=== PATIENT | female | born 1960 ===

== ENCOUNTER 2016-11-01 08:08 | Emergency (ER) | payer MEDICARE, MEDICAID ==
[2016-11-01 08:41] VITALS: BMI 30.9
[2016-11-01 08:46] VITALS: TEMP 98.4
--- NOTE | 2016-11-01 09:33 | RAD ---
PROCEDURE: Radiographs of the Right Shoulder HISTORY: shoulder pain COMPARISON: No prior. FINDINGS: BONES: No fracture or dislocation. JOINTS: Mild osteoarthritis. SOFT TISSUES: Normal. OTHER FINDINGS: None. IMPRESSION: No fracture dislocation
--- NOTE | 2016-11-01 09:49 | ED PDOC ---
Upper Extremity Pain/Injury Time Seen by Provider: 11/01/16 08:19 Chief Complaint (Nursing): Upper Extremity Problem/Injury Chief Complaint (Provider): Upper Extremity Problem/Injury History Per: Patient History/Exam Limitations: no limitations Onset/Duration Of Symptoms: Days (x1 day) Current Symptoms Are (Timing): Still Present Additional Complaint(s): 56 y/o female who presents to the emergency department with a complaint of a right shoulder pain that radiates down to the right arm after cleaning the house around 18:00 on 10/31/2016. Was mopping and using the right arm mainly. Associated with tingling in fingers. Reports taking Tylenol without relief of symptoms. Denies chest pain, shortness of breath, facial numbness, weakness, neck pain, leg pain, or head injury. No back pain. No facial issues. Past Medical History Reviewed: Historical Data, Nursing Documentation, Vital Signs Vital Signs: Last Vital Signs Temp 98.4 F 11/01/16 08:45 Pulse 63 11/01/16 08:45 Resp 16 11/01/16 08:45 BP 126/64 11/01/16 08:45 Pulse Ox 98 11/01/16 08:45 - Medical History PMH: Anxiety, Arthritis, Bipolar Disorder, GERD, HTN Denies: Chronic Kidney Disease - Surgical History Surgical History: (4 ) - Family History Family History: States: Unknown Family Hx - Social History Current smoker - smoking cessation education provided: No Alcohol: None Drugs: Denies - Immunization History Hx Tetanus Toxoid Vaccination: No Hx Influenza Vaccination: No Hx Pneumococcal Vaccination: No - Home Medications Home Medications: Ambulatory Orders Medication Instructions Recorded Naproxen 500 mg PO BID #30 tab 01/16/16 Oxycodone HCl/Acetaminophen 1 tab PO Q6 PRN #12 tab 01/16/16 [Percocet 325 mg-5 mg] metFORMIN [glucOPHAGE] 500 mg PO BID 01/16/16 Lidocaine 5% [Lidoderm] 1 patch TOP DAILY #10 patch 02/11/16 Oxycodone HCl/Acetaminophen 1 tab PO Q6 PRN #8 tab 02/14/16 [Percocet 325 mg-5 mg] diaZEpam [Valium] 5 mg PO Q6 PRN #0 tab 02/14/16 Ibuprofen [Motrin] 600 mg PO Q6 #25 tab 08/26/16 metFORMIN [glucOPHAGE] 500 mg PO BID 03/27/16 Dicyclomine [Bentyl] 20 mg PO Q12 PRN #20 tab 05/17/16 Ondansetron ODT [Zofran ODT] 4 mg PO Q6 PRN #16 odt 05/17/16 Azithromycin [Zithromax] 250 mg PO DAILY #6 tab 07/09/16 traMADol [Ultram] 50 mg PO Q8 #10 tab 07/09/16 Ciprofloxacin HCl [Cipro] 500 mg PO BID #20 tab 08/01/16 Fluticasone Nasal [Flonase] 1 actuation NS DAILY #1 spr 08/01/16 - Allergies Allergies/Adverse Reactions: Allergies Allergy/AdvReac Type Severity Reaction Status Date / Time ibuprofen Allergy RASH Verified 08/01/16 07:41 Penicillins Allergy RASH Verified 08/01/16 07:41 strawberry Allergy VOMITING Verified 08/01/16 07:41 Review of Systems ROS Statement: Except As Marked, All Systems Reviewed And Found Negative Constitutional: Negative for: Weakness, Other (Facial numbness or head injury) Cardiovascular: Negative for: Chest Pain Respiratory: Negative for: Shortness of Breath Musculoskeletal: Positive for: Shoulder Pain (Right), Arm Pain (Right). Negative for: Neck Pain, Leg Pain Neurological: Negative for: Numbness Physical Exam - Reviewed Nursing Documentation Reviewed: Yes Vital Signs Reviewed: Yes - Physical Exam Appears: Positive for: Non-toxic, No Acute Distress Skin: Positive for: Normal Color, Warm, Dry Neck: Positive for: Normal, Painless ROM, Supple Cardiovascular/Chest: Positive for: Regular Rate, Rhythm, Chest Non Tender. Negative for: Edema Respiratory: Positive for: Normal Breath Sounds Pulses-Radial (R): 1+ Extremity: Positive for: Tenderness (R shoulder diffuse), Other (Full ROM R of the shoulder with pain; actively and passively ). Negative for: Pedal Edema Neurologic/Psych: Positive for: Alert, Oriented - ECG O2 Sat by Pulse Oximetry: 98 (RA) Pulse Ox Interpretation: Normal - Radiology X-Ray: Read By Radiologist X-Ray Interpretation: No Acute Disease - Progress ED Course And Treament: 1105: Stable. AAOx3. Pain free. Increased ROM. Fu with pcp. Allergy to nsaids. Medical Decision Making Medical Decision Making: Time: 8:19 Initial impression: Shoulder stiffness Initial plan: --Morphine 4mg IM --Revaluation Scribe Attestation: Documented by Shireen Zacarias, acting as a scribe for Robert Dickey MD. Provider Scribe Attestation: All medical record entries made by the Scribe were at my direction and personally dictated by me. I have reviewed the chart and agree that the record accurately reflects my personal performance of the history, physical exam, medical decision making, and the department course for this patient. I have also personally directed, reviewed, and agree with the discharge instructions and disposition. Disposition - Clinical Impression Clinical Impression: Shoulder pain - Patient ED Disposition Is Patient to be Admitted: No Counseled Patient/Family Regarding: Studies Performed, Diagnosis, Need For Followup - Disposition Referrals: Don Peterson MD [Primary Care Provider] - 11/02/16 Disposition: Routine/Home Disposition Time: 11:06 Condition: STABLE Additional Instructions: Return if not better in 3 days. Instructions: Shoulder Pain (ED)
[2016-11-01 11:16] VITALS: BP 114/66; PULSE 61; RESP 18; O2SAT 99
== END 2016-11-01 11:16 | disposition home or self-care (01) ==
LOC: H.ER 08:08
DX: M25.511 Pain in right shoulder (principal); F31.9 Bipolar disorder, unspecified; I10 Essential (primary) hypertension; Z79.84 Long term (current) use of oral hypoglycemic drugs
CPT/HCPCS: 73030; 96372; 99284; J2270

== ENCOUNTER 2017-04-11 09:58 | Emergency (ER) | payer MEDICARE, MEDICAID ==
[2017-04-11 10:04] VITALS: TEMP 98; O2SAT 99
[2017-04-11 10:05] VITALS: BMI 31.4
--- NOTE | 2017-04-11 10:33 | ED PDOC ---
HPI: Headache Time Seen by Provider: 04/11/17 10:13 Chief Complaint (Nursing): Headache Chief Complaint (Provider): Headache History Per: Patient History/Exam Limitations: no limitations Onset/Duration Of Symptoms: Days Current Symptoms Are (Timing): Still Present Additional Complaint(s): 56 y/o female with a past medical history of migraines who presents to the emergency department with a complaint of a headache, dizziness, nausea, chills, constipation, and pain with ambulation since 04/09/2017. Reports taking Tylenol and Excedrin within the relief of symptoms. States last head CAT Scan was in 1999 when she used to live in [place] and would get shots in the emergency room for her migraines. Denies abdominal pain or any further medical complaints. PMD: Dr. Don Peterson MD Past Medical History Reviewed: Historical Data, Nursing Documentation, Vital Signs Vital Signs: Last Vital Signs Temp 98 F 04/11/17 10:04 Pulse 51 L 04/11/17 10:04 Resp 16 04/11/17 10:04 BP 111/51 L 04/11/17 10:04 Pulse Ox 99 04/11/17 10:04 - Medical History PMH: Anxiety, Arthritis, Bipolar Disorder, Depression, Diabetes (type 2), GERD, HTN Denies: Chronic Kidney Disease - Surgical History Surgical History: (4 ) - Family History Family History: States: Unknown Family Hx - Immunization History Hx Tetanus Toxoid Vaccination: No Hx Influenza Vaccination: No Hx Pneumococcal Vaccination: No - Home Medications Home Medications: Ambulatory Orders Medication Instructions Recorded Benztropine [Cogentin] 1 tab PO BID 04/11/17 Metformin ER [Glucophage XR] 1 tab PO BID 04/11/17 Polyethylene Glycol 3350 [Miralax] 1 tsp PO DAILY PRN #1 bottle 04/11/17 Risperidone [Risperdal] 1 tab PO HS 04/11/17 Sertraline HCl [Zoloft] 1 tab PO DAILY 04/11/17 busPIRone [Buspar] 15 mg PO BID 04/11/17 traMADol [Ultram] 25 mg PO Q6H PRN #10 tab 04/11/17 traZODone [Desyrel] 1 tab PO HS 04/11/17 - Allergies Allergies/Adverse Reactions: Allergies Allergy/AdvReac Type Severity Reaction Status Date / Time ibuprofen Allergy RASH Verified 04/11/17 10:25 Penicillins Allergy RASH Verified 04/11/17 10:25 strawberry Allergy VOMITING Verified 04/11/17 10:25 Review of Systems ROS Statement: Except As Marked, All Systems Reviewed And Found Negative Constitutional: Positive for: Chills Gastrointestinal: Positive for: Nausea, Constipation. Negative for: Abdominal Pain Neurological: Positive for: Headache, Dizziness Physical Exam - Reviewed Nursing Documentation Reviewed: Yes Vital Signs Reviewed: Yes - Physical Exam Appears: Positive for: Non-toxic, No Acute Distress Head Exam: Positive for: ATRAUMATIC, NORMAL INSPECTION, NORMOCEPHALIC Skin: Positive for: Normal Color, Warm, Dry Eye Exam: Positive for: Normal appearance ENT: Positive for: Normal ENT Inspection Neck: Positive for: Normal, Supple Cardiovascular/Chest: Positive for: Regular Rate, Rhythm. Negative for: Murmur Respiratory: Positive for: Normal Breath Sounds. Negative for: Accessory Muscle Use, Wheezing, Respiratory Distress Neurologic/Psych: Positive for: Alert, Oriented (x3) - Laboratory Results Result Diagrams: 04/11/17 11:10 04/11/17 11:10 - ECG O2 Sat by Pulse Oximetry: 99 (RA) Pulse Ox Interpretation: Normal Medical Decision Making Medical Decision Making: Time: 10:30 Initial impression: Migraine Initial plan: --Head CT --EKG --CMP --CBC w/ diff --Abdomen w/ chest x-ray --Reevaluation Time: 10:58 --Head CT FINDINGS: HEMORRHAGE: No intracranial hemorrhage. BRAIN: No mass effect or edema. No atrophy or chronic microvascular ischemic changes. VENTRICLES: Unremarkable. No hydrocephalus. CALVARIUM: Unremarkable. PARANASAL SINUSES: Unremarkable as visualized. No significant inflammatory changes. MASTOID AIR CELLS: Unremarkable as visualized. No inflammatory changes. OTHER FINDINGS: None. IMPRESSION: No acute intracranial abnormalities. No significant findings to account for the clinical presentation. Time: 11:34 --Zofran 4 mg IV --Ultram 50 mg PO --Sodium Chloride 1L IV Time: 12:04 --Chest-abdomen x-ray FINDINGS: CHEST: Lungs: Clear. Cardiovascular: Normal size heart. No pulmonary vascular congestion. Pleura: No pleural fluid. No pneumothorax. Other findings: None. ABDOMEN AND PELVIS: Bowel: Unremarkable bowel gas pattern. No evidence of mechanical obstruction. Free air: None. Bones: Unremarkable. Other findings: None. IMPRESSION: Unremarkable radiographs of chest and abdomen. No evidence of mechanical bowel obstruction. Time: 13:00 Patient is medically stable, and requires no further treatment in the ED at this time. Patient will be discharged home with Rx for Miralax and ultram 25 mg. Counseling was provided and all questions were answered regarding diagnosis and need for follow up with Dr. Don Peterson MD. There is agreement to discharge plan. Return if symptoms persist or worsen. Clinical Impression: Constipation and headache Scribe Attestation: Documented by Shireen Zacarias, acting as a scribe for Aviva Perea MD. Provider Scribe Attestation: All medical record entries made by the Scribe were at my direction and personally dictated by me. I have reviewed the chart and agree that the record accurately reflects my personal performance of the history, physical exam, medical decision making, and the department course for this patient. I have also personally directed, reviewed, and agree with the discharge instructions and disposition. Disposition - Clinical Impression Clinical Impression: Headache, Constipation Counseled Patient/Family Regarding: Studies Performed, Diagnosis, Need For Followup, Rx Given - Disposition Referrals: Don Peterson MD [Family Provider] - Disposition Time: 13:00 Condition: STABLE Prescriptions: Polyethylene Glycol 3350 [Miralax] 1 tsp PO DAILY PRN #1 bottle PRN Reason: Constipation traMADol [Ultram] 25 mg PO Q6H PRN #10 tab PRN Reason: Pain, Severe (8-10) Instructions: Constipation (ED), Migraine Headache (ED) Forms: [employer] (Namibian)
--- NOTE | 2017-04-11 10:59 | CT ---
PROCEDURE: CT HEAD WITHOUT CONTRAST. HISTORY: HARPER COMPARISON: None available. TECHNIQUE: Axial computed tomography images were obtained through the head/brain without intravenous contrast. Radiation dose: Total exam DLP = 989.93 mGy-cm. This CT exam was performed using one or more of the following dose reduction techniques: Automated exposure control, adjustment of the mA and/or kV according to patient size, and/or use of iterative reconstruction technique. FINDINGS: HEMORRHAGE: No intracranial hemorrhage. BRAIN: No mass effect or edema. No atrophy or chronic microvascular ischemic changes. VENTRICLES: Unremarkable. No hydrocephalus. CALVARIUM: Unremarkable. PARANASAL SINUSES: Unremarkable as visualized. No significant inflammatory changes. MASTOID AIR CELLS: Unremarkable as visualized. No inflammatory changes. OTHER FINDINGS: None. IMPRESSION: No acute intracranial abnormalities. No significant findings to account for the clinical presentation.
[2017-04-11 11:18] LABS: BASO % 0.4 % (0.0-2.0); EOS # 0.1 K/uL (0.0-0.7); EOS % 2.3 % (0.0-4.0); LYMPH # 1.7 K/uL (1.0-4.3); LYMPH % 33.5 % (20.0-40.0); MEAN CELL VOLUME 90.1 fl (81.0-99.0); MEAN CORPUSCULAR HEMOGLOBIN 30.1 pg (27.0-31.0); MEAN CORPUSCULAR HGB CONC 33.4 g/dL (33.0-37.0); MEAN PLATELET VOLUME 8.9 fl (7.2-11.7); MONO # 0.5 K/uL (0.0-0.8); MONO % 8.9 % (0.0-10.0); NEUT # 2.8 K/uL (1.8-7.0); NEUT % 54.9 % (50.0-75.0); NRBC % 0.1 % (0.0-0.0); RED CELL DISTRIBUTION WIDTH 13.3 % (11.5-14.5); WHITE BLOOD COUNT 5.2 K/uL (4.8-10.8)
[2017-04-11] MEDS ORDERED: Sodium Chloride 0.9% 1,000 ML IV STA (11:39)
[2017-04-11 11:40] LABS: ALB/GLOB RATIO 1.4 (1.0-2.1); ALKALINE PHOSPHATASE 55 U/L (38-126); ALT/SGPT 36 U/L (9-52); AST/SGOT 35 U/L (14-36); BILIRUBIN,TOTAL 0.3 mg/dl (0.2-1.3); BLOOD UREA NITROGEN 12 mg/dl (7-17); CALCIUM 9.6 mg/dL (8.4-10.2); CARBON DIOXIDE 28 mmol/L (22-30); CHLORIDE 107 mmol/L (98-107); GFR AFRICAN-AMERICAN > 60; GLUCOSE,RANDOM 84 mg/dL (65-105); POTASSIUM 4.4 MMOL/L (3.6-5.0); SODIUM 141 mmol/l (132-148); TOTAL PROTEIN 6.8 G/DL (6.3-8.2)
--- NOTE | 2017-04-11 13:06 | RAD ---
PROCEDURE: Radiographs of the chest and abdomen (obstructive series) HISTORY: Constipation COMPARISON: No prior. TECHNIQUE: AP radiograph of the chest, with upright and supine radiographs of the abdomen. FINDINGS: CHEST: Lungs: Clear. Cardiovascular: Normal size heart. No pulmonary vascular congestion. Pleura: No pleural fluid. No pneumothorax. Other findings: None. ABDOMEN AND PELVIS: Bowel: Unremarkable bowel gas pattern. No evidence of mechanical obstruction. Free air: None. Bones: Unremarkable. Other findings: None. IMPRESSION: Unremarkable radiographs of chest and abdomen. No evidence of mechanical bowel obstruction.
[2017-04-11 13:12] VITALS: BP 142/83; PULSE 63; RESP 18
--- NOTE | 2017-04-14 10:06 | CARD ---
APPROVED REPORT EKG Measurement Heart [id number] NC [id number] [id number] <Conclusion> Sinus bradycardia Otherwise normal ECG
== END 2017-04-11 13:21 | disposition home or self-care (01) ==
LOC: H.ER 09:58
DX: R51 Headache (principal); K59.00 Constipation, unspecified; E11.9 Type 2 diabetes mellitus without complications; Z79.84 Long term (current) use of oral hypoglycemic drugs; Z88.0 Allergy status to penicillin
CPT/HCPCS: 70450; 74022; 80053; 81025; 85025; 96360; 99285; J2405; J7040

== ENCOUNTER 2017-04-17 10:33 | Inpatient (IN) | payer MEDICARE, MEDICAID ==
[2017-04-17 10:39] VITALS: BMI 29.9
--- NOTE | 2017-04-17 11:31 | ED PDOC ---
HPI: Chest Pain Time Seen by Provider: 04/17/17 10:57 Chief Complaint (Nursing): Chest Pain Chief Complaint (Provider): Dizzy, SOB History Per: Patient Additional Complaint(s): 56 y/o female with a past medical history of HTN and DM, who presents to the emergency department with multiple somatic complaints. Pt reports for 1 month now she has had weakness, fatigue, vertigo, headaches, nausea, chest pain and SOB. Pt reports her symptoms have been so terrible lately, that she can not even walk around her house to clean. Reports taking Tylenol and Excedrin within the relief of symptoms. Pt seen and evaluated here on 04/11 for similar symptoms, reports headaches were worse that that time, and she had a CT scan of head done that was negative. Pt was discharged home. PMD: Dr. Don Peterson MD Past Medical History Reviewed: Historical Data, Nursing Documentation, Vital Signs Vital Signs: Last Vital Signs Temp 98.0 F 04/17/17 10:39 Pulse 59 L 04/17/17 10:39 Resp 16 04/17/17 10:39 BP 127/77 04/17/17 10:39 Pulse Ox 100 04/17/17 11:31 - Medical History PMH: Anxiety, Arthritis, Bipolar Disorder, Depression, Diabetes (type 2), GERD, HTN Denies: Chronic Kidney Disease - Surgical History Surgical History: (4 ) - Family History Family History: States: Unknown Family Hx - Living Arrangements Living Arrangements: With Family - Social History Current smoker - smoking cessation education provided: No Alcohol: None Drugs: Denies - Immunization History Hx Tetanus Toxoid Vaccination: No Hx Influenza Vaccination: No Hx Pneumococcal Vaccination: No - Home Medications Home Medications: Ambulatory Orders Medication Instructions Recorded Benztropine [Cogentin] 1 tab PO BID 04/11/17 Metformin ER [Glucophage XR] 1 tab PO BID 04/11/17 Polyethylene Glycol 3350 [Miralax] 1 tsp PO DAILY PRN #1 bottle 04/11/17 Risperidone [Risperdal] 1 tab PO HS 04/11/17 Sertraline HCl [Zoloft] 1 tab PO DAILY 04/11/17 busPIRone [Buspar] 15 mg PO BID 04/11/17 traMADol [Ultram] 25 mg PO Q6H PRN #10 tab 04/11/17 traZODone [Desyrel] 1 tab PO HS 04/11/17 - Allergies Allergies/Adverse Reactions: Allergies Allergy/AdvReac Type Severity Reaction Status Date / Time ibuprofen Allergy RASH Verified 04/11/17 10:25 Penicillins Allergy RASH Verified 04/11/17 10:25 strawberry Allergy VOMITING Verified 04/11/17 10:25 CALIXTO Risk Score for UA/NSTEMI - CALIXTO Risk Score Age > 64: NO 3 or more CAD Risk Factors: NO Known CAD (Stenosis greater than 50%): NO Aspirin use in past 7 days: NO Severe Angina: NO EKG ST changes greater than 0.5mm: NO Positive Cardiac Marker: NO CALIXTO Score: 0 Risk %: 5% Curb-65 Severity Score - CURB-65 Severity Score Confusion: No Bun >19mg/dl (>7mmol/L): No Respiratory Rate greater than/equal to 30: No Systolic BP <90 or Diastolic BP less than/equal 60mmHg: No Age >64: No Curb-65 Score: 0 Percentage 30-day mortality: 0.6% Wells Criteria for PE - Wells Criteria for Pulmonary Embolism Clinical Signs and Symptoms of DVT: No P.E is #1 Diagnosis, or Equally Likely: No Heart Rate >100: No Immobilization at least 3 days;Surgery previous 4 weeks: No Previous, objectively diagnosed PE or DVT: No Hemoptysis: No Malignancy w/treatment within 6 months, or palliative: No Total Score: 0 Review of Systems ROS Statement: Except As Marked, All Systems Reviewed And Found Negative Constitutional: Positive for: Weakness, Malaise Cardiovascular: Positive for: Chest Pain Respiratory: Positive for: Shortness of Breath Neurological: Positive for: Dizziness Physical Exam - Reviewed Nursing Documentation Reviewed: Yes Vital Signs Reviewed: Yes - Physical Exam Appears: Positive for: Well, Non-toxic, No Acute Distress Head Exam: Positive for: ATRAUMATIC, NORMAL INSPECTION, NORMOCEPHALIC Skin: Positive for: Normal Color, Warm, DRY Eye Exam: Positive for: EOMI, Normal appearance, PERRL ENT: Positive for: Normal ENT Inspection Neck: Positive for: Normal, Painless ROM Cardiovascular/Chest: Positive for: Regular Rate, Rhythm Respiratory: Positive for: CNT, Normal Breath Sounds Gastrointestinal/Abdominal: Positive for: Normal Exam, Bowel Sounds, Soft Back: Positive for: Normal Inspection Extremity: Positive for: Normal ROM Neurologic/Psych: Positive for: Alert, Oriented - Laboratory Results Result Diagrams: 04/17/17 12:05 04/17/17 12:05 - ECG O2 Sat by Pulse Oximetry: 100 Medical Decision Making Medical Decision Making: Pt placed on lead case manager, P: 52, BP: 122/78, POX: 100% on RA Pt medicated with Acetmainophen and Meclazine for headache and vertigo at this time. IV access established and diagnostics ordered EKG interpreted and cleared by ED MD NSR at 53 bpm, no axis deviation or acute ST changes, as read by ED MD CXR: NAD, as read by DANIELA labs resulted and reviewed with Pt who demonstrated full understanding Case discussed with ED MD, Dr. Dao, who agreed with obs-tele at this time and possible cardio consult Hospitalist, Dr. Hearn, contacted and case discussed. Agreed with admission at this time. arrangements made. Requested cardio consult, dr. Matthews Disposition - Clinical Impression Clinical Impression: Vertigo, Chest pain on exertion, Shortness of breath - Patient ED Disposition Is Patient to be Admitted: Yes - Disposition Disposition Time: 14:34 Condition: STABLE Forms: [facility] (Albanian) - POA Present On Arrival: None
[2017-04-17 12:24] LABS: RBC URINE 2 /hpf (0-3); URINE BACTERIA RARE (<OCC); URINE BILIRUBIN NEGATIVE (NEGATIVE); URINE BLOOD NEGATIVE (NEGATIVE); URINE GLUCOSE (UA) NEG (Normal); URINE KETONE NEGATIVE (NEGATIVE); URINE LEUKOCYTE ESTERASE NEG Leu/uL (Negative); URINE PROTEIN 30 mg/dL (NEGATIVE); URINE UROBILINOGEN 0.2-1.0 mg/dL (0.2-1.0); WBC URINE 1 /hpf (0-5)
[2017-04-17 12:26] LABS: BASO % 0.4 % (0.0-2.0); EOS # 0.1 K/uL (0.0-0.7); EOS % 2.2 % (0.0-4.0); HEMATOCRIT 33.9 % (34.0-47.0); LYMPH # 1.7 K/uL (1.0-4.3); LYMPH % 27.1 % (20.0-40.0); MEAN CELL VOLUME 89.5 fl (81.0-99.0); MEAN CORPUSCULAR HEMOGLOBIN 30.2 pg (27.0-31.0); MEAN CORPUSCULAR HGB CONC 33.8 g/dL (33.0-37.0); MEAN PLATELET VOLUME 9.3 fl (7.2-11.7); MONO # 0.5 K/uL (0.0-0.8); MONO % 7.1 % (0.0-10.0); NEUT % 63.2 % (50.0-75.0); RED CELL DISTRIBUTION WIDTH 13.4 % (11.5-14.5); WHITE BLOOD COUNT 6.4 K/uL (4.8-10.8)
[2017-04-17 12:31] LABS: ALB/GLOB RATIO 1.4 (1.0-2.1); ALKALINE PHOSPHATASE 57 U/L (38-126); ALT/SGPT 35 U/L (9-52); AST/SGOT 27 U/L (14-36); BILIRUBIN,TOTAL 0.3 mg/dl (0.2-1.3); BLOOD UREA NITROGEN 19 mg/dl (7-17); CALCIUM 9.2 mg/dL (8.4-10.2); CARBON DIOXIDE 25 mmol/L (22-30); CHLORIDE 105 mmol/L (98-107); GFR AFRICAN-AMERICAN > 60; GLUCOSE,RANDOM 111 mg/dL (65-105); POTASSIUM 4.4 MMOL/L (3.6-5.0); SODIUM 138 mmol/l (132-148)
[2017-04-17 12:35] LABS: URINE COLOR YELLOW (YELLOW)
[2017-04-17 12:36] LABS: PARTIAL THROMBOPLASTIN TIME 36.8 Seconds (25.6-37.1)
--- NOTE | 2017-04-17 12:55 | RAD ---
HISTORY: sob COMPARISON: No prior. TECHNIQUE: Chest PA and lateral FINDINGS: LUNGS: No active pulmonary disease. PLEURA: No significant pleural effusion identified. No pneumothorax apparent. CARDIOVASCULAR: Normal. OSSEOUS STRUCTURES: No significant abnormalities. VISUALIZED UPPER ABDOMEN: Normal. OTHER FINDINGS: None. IMPRESSION: No active disease.
[2017-04-17 13:02] LABS: THYROID STIMULATING HORMONE 0.89 mIU/ML (0.46-4.68)
[2017-04-17] MEDS ORDERED: Influenza Vaccine 18yr & older 0.5 ML/45 MCG SYR IM ONE (18:32)
[2017-04-17] MEDS ORDERED: Pneumococcal 23-Valent Vaccine IM ONE (18:32)
[2017-04-17] MEDS ORDERED: Iodixanol 320 MG/ML 100 ML BOTTLE IV ONE (18:41)
[2017-04-17] MEDS ORDERED: Sodium Chloride 0.9% 100 ML ONE (18:41)
[2017-04-17] MEDS: Insulin Lispro (humaLOG) 100 Units/ml Inj SC SCH (21:51)
--- NOTE | 2017-04-17 22:21 | CT ---
EXAM: CT Angiography Chest With Intravenous Contrast CLINICAL HISTORY: 56 years old, female; Signs and symptoms; Other: SOB dizzy vertigo cp salcedo's v n HTN dm; Patient HX: SOB dizzy vertigo cp salcedo's v n HTN dm. x 4; Additional info: Rule out pe TECHNIQUE: Axial computed tomographic angiography images of the chest with intravenous contrast using pulmonary embolism protocol. All CT scans at this facility use one or more dose reduction techniques, viz.: automated exposure control; ma/kV adjustment per patient size (including targeted exams where dose is matched to indication; i.e. head); or iterative reconstruction technique. MIP reconstructed images were created and reviewed. Coronal and sagittal reformatted images were created and reviewed. CONTRAST: 98 mL of OMNIPAQUE administered intravenously. COMPARISON: CR - CHEST TWO VIEWS (PA/LAT) 04/17/2017 11:36:35 AM FINDINGS: Pulmonary arteries: No pulmonary embolism. Aorta: No aneurysm. No dissection. Lungs: Minimal peripheral atelectasis/scarring. No consolidation. Few pulmonary nodules, up to 0.3 cm. Pleural space: No significant effusion. No pneumothorax. Heart: No cardiomegaly. No significant pericardial effusion. Bones/joints: No acute fracture. No dislocation. Soft tissues: Unremarkable. Lymph nodes: No pathologically enlarged lymph nodes. IMPRESSION: 1. No CT evidence of pulmonary embolism. 2. Pulmonary nodules. For low-risk patients, no follow-up is necessary. For high-risk patients (smoking history or other known risk factors) an optional CT at 12 months could be performed.
--- NOTE | 2017-04-18 00:27 | CON ---
DATE: REASON FOR CONSULTATION: Chest pain. HISTORY OF PRESENT ILLNESS: The patient is 56 years old female who is a former smoker, quit some months ago, has history of hypertension, diabetes mellitus, and history of depression presented because of sharp left-sided chest pain, non-radiating, and not associated with diaphoresis. The patient stated that she was evaluated few months ago for difficulty ambulating. The patient denies any history of stroke in the past. SOCIAL HISTORY: The patient is a former smoker who quit six months ago. She lives with her boyfriend. MEDICATIONS: The patient's home medication include BuSpar 15 mg p.o. twice a day, Vistaril 100 mg tablet two tablets at bedtime, Cogentin 0.5 mg twice a day, Zoloft 100 mg daily, Risperdal 3 mg at bedtime, metformin 750 mg p.o. daily, Ultram 25 mg q.6 hours p.r.n., Flexeril 5 mg p.o. at bedtime, Lopressor, hydrochlorothiazide 50/12.5 mg orally daily. REVIEW OF SYSTEMS: No dizziness or syncope. No palpitations. No prior history of heart attack in the past. PHYSICAL EXAMINATION GENERAL: The patient is a middle age female, who does not appear to be in any distress at this time. VITAL SIGNS: Blood pressure 128/68, heart rate 53, temperature 97.7, respirations 14. HEENT: Normocephalic. NECK: No JVD. CHEST: Clear. HEART: Heart sounds regular. ABDOMEN: Soft. EXTREMITIES: No edema or calf tenderness. EKG revealed sinus bradycardia at the rate of 53. LABORATORIES: Hemoglobin and hematocrit 11.3 and 33.9, white count and platelet count within normal limits. SMA-7; sodium 138, potassium 4.4, chloride 105, CO2 25, glucose 111, BUN 19, and creatinine 0.7. One set of troponin is negative. TSH level is within normal limit. PT and PTT are within normal limit. The patient underwent head CT scan on 04/11/2017, which revealed no acute intracranial abnormality. Abdomen and pelvis CT scan in 12/2016 revealed under distended and mildly thickened distal descending and sigmoid colon. Small punctate calcific foci seen at the level of the proximal sigmoid colon. Lumbar spine x-ray performed in 01/2016, revealed scoliosis of the lumbar spine convex to the left and multilevel degenerative changes. ASSESSMENT: 1. Chest pain rule out myocardial infarction. 2. Rule out pulmonary infraction. 3. Hypertension. 4. Diabetes mellitus. 5. Depression. 6. Mild sinus bradycardia. RECOMMENDATIONS: Admit the patient to telemetry, resume the patient's current medications except Lopressor and hydrochlorothiazide. Monitor EKGs and serial cardiac enzymes. Obtain serum D-dimer and scheduled the patient for an echocardiogram if I did not mention that. TSH level was performed and is within normal limit. Denis Omalley MD
[2017-04-18] MEDS: Insulin Lispro (humaLOG) 100 Units/ml Inj SC SCH ×4 (06:44→21:43)
[2017-04-18] MEDS ORDERED: HYDROCHLOROTHIAZ PO SCH (09:00)
[2017-04-18] MEDS ORDERED: [UNRECOGNIZED DRUG - OTHER] PO SCH (09:00)
[2017-04-18] MEDS ORDERED: METOPROLOL SU PO SCH (09:00)
[2017-04-18] MEDS: Enoxaparin 40 mg Syringe SC SCH (09:03)
[2017-04-18] MEDS: Metoprolol Succinate 50 mg XL Tab PO SCH ×2 (09:04→09:08)
--- NOTE | 2017-04-18 09:30 | CARD ---
APPROVED REPORT EKG Measurement Heart [id number] DC 170P6 [id number] <Conclusion> Sinus bradycardia Cannot rule out Anterior infarct, age undetermined (Poor R wave progression V3 to V4) Abnormal ECG
--- NOTE | 2017-04-18 20:53 | PN ---
SUBJECTIVE: The patient still experiencing sharp chest discomfort. She still has difficulty ambulating without imbalance. PHYSICAL EXAMINATION VITAL SIGNS: Blood pressure 118/69, heart rate 66, temperature 99.8, respirations 18. HEENT: Normocephalic. CHEST: Bilateral rhonchi. HEART: S1 and S2 regular. EXTREMITIES: No edema or calf tenderness. LABORATORY DATA: Today's blood sugar is 99 and 132. Three sets of troponins are negative. Chest CT angio, no evidence of pulmonary embolus. Pulmonary nodules are noted. ASSESSMENT: 1. Chest pain, myocardial infarction ruled out. 2. Hypertension and diabetes mellitus. 3. Depression. 4. Mild sinus bradycardia. RECOMMENDATIONS: Continue telemetry monitoring. Continue current BuSpar, Cogentin, Flexeril, subcutaneous Lovenox at 40 mg daily as DVT prophylaxis, continue hydrochlorothiazide 12.5 mg once a day, Toprol-XL 50 mg once a day beside antidepressants. Obtain head CT scan without contrast as well as CT scan of the thoracolumbar spines. Denis Omalley MD
--- NOTE | 2017-04-18 21:38 | CP.PCM.HP ---
History of Present Illness - History of Present Illness History of Present Illness: CC: Nearsyncope and Chest Pain History of present Illness: A 56yoF with H/O HTN and DM, and EX-smoker who quit smoking 11/16 who presents to the emergency department with multiple somatic complaints. C/O Retrosternal Chest pain 02/08 with radiation to the left arm associated with SOb, N/V and Light headeness Patient also reports for 1 month now she has had weakness, fatigue, vertigo, headaches, and nausea besides the chest pain and SOB. Pt reports her symptoms have been so terrible lately, that she cannot even walk around her house to clean. Reports taking Tylenol and Excedrin with some relief of symptoms. Patient seen and evaluated here on 04/11 for similar symptoms , reports headaches were worse that time, and she had a CT scan of head done that was negative. No Cardiac stress test or CArdiac CAtheterization in the past. Present on Admission - Present on Admission Any Indicators Present on Admission: No History of DVT/PE: No History of Uncontrolled Diabetes: No Urinary Catheter: No Decubitus Ulcer Present: No Review of Systems - Review of Systems All systems: reviewed and no additional remarkable complaints except - Cardiovascular Cardiovascular: As Per HPI Past Patient History - Infectious Disease Hx of Infectious Diseases: None - Past Medical History & Family History Past Medical History?: Yes Past Family History: Reviewed and not pertinent - Past Social History Smoking Status: Former Smoker Alcohol: None Drugs: Denies - CARDIAC Hx Hypertension: Yes - PULMONARY Hx Respiratory Disorders: No - NEUROLOGICAL Hx Neurological Disorder: No - HEENT Hx HEENT Problems: No - RENAL Hx Chronic Kidney Disease: No - ENDOCRINE/METABOLIC Hx Endocrine Disorders: Yes Hx Diabetes Mellitus Type 2: Yes - HEMATOLOGICAL/ONCOLOGICAL Hx Blood Disorders: No Hx AIDS: No Hx Human Immunodeficiency Virus (HIV): No - INTEGUMENTARY Hx Dermatological Problems: No - MUSCULOSKELETAL/RHEUMATOLOGICAL Hx Arthritis: Yes Hx Falls: No - GASTROINTESTINAL Hx Gastrointestinal Disorders: No - GENITOURINARY/GYNECOLOGICAL Hx Genitourinary Disorders: No - PSYCHIATRIC Hx Anxiety: Yes Hx Bipolar Disorder: Yes Hx Depression: Yes Hx Substance Use: No - SURGICAL HISTORY Hx Surgeries: Yes Hx Section: Yes Hx Hysterectomy: Yes - ANESTHESIA Hx Anesthesia: Yes Hx Anesthesia Reactions: No Has any member of the family had a problem w/ anesthesia?: No Meds Allergies/Adverse Reactions: Allergies Allergy/AdvReac Type Severity Reaction Status Date / Time ibuprofen Allergy RASH Verified 04/11/17 10:25 Penicillins Allergy RASH Verified 04/11/17 10:25 strawberry Allergy VOMITING Verified 04/11/17 10:25 Physical Exam - Constitutional Appears: Well, No Acute Distress - Head Exam Head Exam: ATRAUMATIC, NORMAL INSPECTION, NORMOCEPHALIC - Eye Exam Eye Exam: EOMI, Normal appearance, PERRL Pupil Exam: NORMAL ACCOMODATION, PERRL - ENT Exam ENT Exam: Mucous Membranes Moist, Normal Exam - Neck Exam Neck exam: Positive for: Normal Inspection - Respiratory Exam Respiratory Exam: Clear to Auscultation Bilateral, NORMAL BREATHING PATTERN - Cardiovascular Exam Cardiovascular Exam: REGULAR RHYTHM, +S1, +S2 - GI/Abdominal Exam GI & Abdominal Exam: Normal Bowel Sounds, Soft. absent: Guarding, Rebound, Rigid, Tenderness - Extremities Exam Extremities exam: Positive for: full ROM, normal capillary refill, normal inspection - Back Exam Back exam: FULL ROM, NORMAL INSPECTION. absent: CVA tenderness (L), CVA tenderness (R) - Neurological Exam Neurological exam: Alert, CN II-XII Intact, Normal Gait, Oriented x3, Reflexes Normal - Psychiatric Exam Psychiatric exam: Normal Affect, Normal Mood - Skin Skin Exam: Dry, Intact, Normal Color, Warm Results - Vital Signs Recent Vital Signs: Last Vital Signs Temp 99.8 F H 04/18/17 15:52 Pulse 63 04/18/17 21:00 Resp 18 04/18/17 15:52 BP 111/69 04/18/17 15:52 Pulse Ox 99 04/18/17 15:52 - Labs Result Diagrams: 04/17/17 12:05 04/17/17 12:05 Labs: Laboratory Results - last 24 hr 04/17/17 04/18/17 04/18/17 21:29 04:56 06:00 POC Glucose (mg/dL) 83 99 Troponin I < 0.0120 04/18/17 10:55 POC Glucose (mg/dL) 132 H Troponin I - EKG Data EKG shows normal: Sinus rhythm Rate: Bradycardia (53/min) - Imaging and Cardiology Chest x-ray Status: Report reviewed by me Additional comment: No Active disease CT scan - chest Status: Report reviewed by me Additional comment: IMPRESSION: 1. No CT evidence of pulmonary embolism. 2. Pulmonary nodules. For low-risk patients, no follow-up is necessary. For high-risk patients (smoking history or other known risk factors) an optional CT at 12 months could be performed. Assessment & Plan (1) Chest pain on exertion Assessment and Plan: Bradycardia Multiple Somatic Symptoms: Near-syncope Vs Vertigo Serial Troponin and EKG O2 via NC ASA and BB Nitro S/L PRN Chest pain 2D Echo Cardiology Consulted May Need PST if ACS Ruled out Status: Acute (2) Diabetes mellitus Status: Chronic (3) Hypertension, essential Status: Chronic
[2017-04-19] MEDS: Insulin Lispro (humaLOG) 100 Units/ml Inj SC SCH ×2 (06:36→11:23)
[2017-04-19 08:30] VITALS: RESP 20
[2017-04-19] MEDS: Metoprolol Succinate 50 mg XL Tab PO SCH (09:06)
[2017-04-19] MEDS: Enoxaparin 40 mg Syringe SC SCH (09:07)
--- NOTE | 2017-04-19 11:24 | CT ---
PROCEDURE: CT HEAD WITHOUT CONTRAST. HISTORY: difficulty walking COMPARISON: Comparison is made to 04/11/2017 TECHNIQUE: Axial computed tomography images were obtained through the head/brain without intravenous contrast. Radiation dose: Total exam DLP = 788.5 mGy-cm. This CT exam was performed using one or more of the following dose reduction techniques: Automated exposure control, adjustment of the mA and/or kV according to patient size, and/or use of iterative reconstruction technique. FINDINGS: HEMORRHAGE: No intracranial hemorrhage. BRAIN: No mass effect or edema. No atrophy or chronic microvascular ischemic changes. VENTRICLES: Unremarkable. No hydrocephalus. CALVARIUM: Unremarkable. PARANASAL SINUSES: Unremarkable as visualized. No significant inflammatory changes. MASTOID AIR CELLS: Unremarkable as visualized. No inflammatory changes. OTHER FINDINGS: None. IMPRESSION: No evidence of acute intracranial hemorrhage intracranial collection mass effect or midline shift. No significant interval change since the previous exam noted. If clinically warranted further assessment by MRI of the brain may be obtained.
--- NOTE | 2017-04-19 11:30 | CARD ---
APPROVED REPORT EXAM: Two-dimensional and M-mode echocardiogram with Doppler and color Doppler. Other Information Quality : GoodRhythm : NSR INDICATION Chest Pain 2D DIMENSIONS IVSd1.20 (0.7-1.1cm)LVDd4.90 (3.9-5.9cm) PWd0.92 (0.7-1.1cm)IVSs1.38 (0.8-1.2cm) LVDs4.34 (2.5-4.0cm)FS (%) 11.6 % PWs0.93 (0.8-1.2cm) M-Mode DIMENSIONS Left Atrium (MM)3.88 (2.5-4.0cm)IVSd1.21 (0.7-1.1cm) Aortic Root2.91 (2.2-3.7cm)LVDd5.21 (4.0-5.6cm) Aortic Cusp Exc.1.65 (1.5-2.0cm)PWd1.00 (0.7-1.1cm) IVSs1.47 cmFS (%) 41 % LVDs3.06 (2.0-3.8cm) Mitral Valve MV E Wedfhply95.2cm/sMV DECEL DWRS200brPM A Mbnertsd19.1cm/s MV OFU76ibH/A ratio0.9MVA (PHT)2.82cm2 TDI Lateral E' Peak V9.86cm/sMedial E' Peak V8.56cm/sE/Lateral E'8.4 E/Medial E'9.7 Pulmonary Valve PV Peak Mwmmtyqu35.8cm/s Tricuspid Valve TR Peak Raooqqvs792mj/sRAP [id number] Peak Gr.22mmHg [id number] LEFT VENTRICLE The left ventricle is normal size. There is normal left ventricular wall thickness. The left ventricular function is normal. The left ventricular ejection fraction is within the normal range. The Ejection Fraction is 65-70%. There is normal LV segmental wall motion. The left ventricular diastolic function is normal. No left ventricle thrombus noted on this study. There is no mass noted in the left ventricle. RIGHT VENTRICLE The right ventricle is normal size. There is normal right ventricular wall thickness. The right ventricular systolic function is normal. ATRIA The left atrium size is normal. The right atrium size is normal. The interatrial septum is intact with no evidence for an atrial septal defect. AORTIC VALVE The aortic valve is normal in structure and function. No aortic regurgitation is present. There is no aortic valvular stenosis. There is no aortic valvular vegetation. MITRAL VALVE The mitral valve is normal in structure and function. There is no evidence of mitral valve prolapse. There is no mitral valve stenosis. Mitral regurgitation is trace. TRICUSPID VALVE The tricuspid valve is normal in structure and function. There is no tricuspid valve regurgitation noted. There is no tricuspid valve prolapse or vegetation. There is no tricuspid valve stenosis. PULMONIC VALVE The pulmonary valve is normal in structure and function. There is no pulmonic valvular regurgitation. There is no pulmonic valvular stenosis. GREAT VESSELS The aortic root is normal in size. The IVC is normal in size and collapses >50% with inspiration. PERICARDIAL EFFUSION The pericardium appears normal. There is no pleural effusion. <Conclusion> The left ventricle is normal size. The left ventricular function is normal. The left ventricular ejection fraction is within the normal range. The Ejection Fraction is 65-70%. Mitral regurgitation is trace.
--- NOTE | 2017-04-19 12:00 | CT ---
PROCEDURE: CT Lumbar Spine without contrast HISTORY: difficulty walking COMPARISON: None. TECHNIQUE: Axial computed tomography images were obtained of the lumbar spine without the use of intravenous contrast. Coronal and sagittal reformatted images were created and reviewed. Radiation dose: Total exam DLP = 1633.07 mGy-cm. This CT exam was performed using one or more of the following dose reduction techniques: Automated exposure control, adjustment of the mA and/or kV according to patient size, and/or use of iterative reconstruction technique. FINDINGS: VERTEBRAE: No acute compression fractures no retropulsed fragments. . There is a minor chronic anterior stature loss of the T12 segment and minimal anterior stature loss L1 segment. The remaining vertebral bodies otherwise exhibit relatively normal stature. Chronic appearing Schmorl's nodes and degenerative endplate changes are present. . Vertebral bodies and facets normally aligned. . . There is sacralization of the L5 segment DISCS/SPINAL CANAL/NEURAL FORAMINA: L1-2: Mild posterior disc space narrowing. No disc herniation or significant disc bulge. Facets a prominent. Central canal and exit foramina adequate. L2-3: Mild posterior disc space narrowing with mild broad-based bulge of the posterior annulus that results in some flattening of the ventral surface of the thecal sac. The overall central canal appears adequate. Exit foramina are also adequate. . L3-4: Mild posterior disc space narrowing. No disc herniation or significant disc bulge. Facets are mildly hypertrophic. Central canal and exit foramina adequate. . L4-5: There is disc space narrowing, vacuum disc phenomena and small -medium-sized broad-based bulge ridge complex that extends slightly into the proximal inferior margins of both exit foramina. . Moderate bilateral lateral recess and mild canal stenosis right greater than left. . . Exit foramina are stenotic bilaterally. L5-S1: Disc space height is relatively maintained. Small central and bilateral disc bulge appears to reach the ventral surface of thecal sac. Facets are slightly hypertrophic. Exit foramina appear adequate. . PARASPINAL SOFT TISSUES: Unremarkable. OTHER FINDINGS: None. IMPRESSION: No acute fractures. Multilevel degenerative spondylosis most notably affecting the L4-L5 level as detailed above.
[2017-04-19 12:21] VITALS: BP 105/65; PULSE 64; TEMP 98.5; O2SAT 96
--- NOTE | 2017-04-19 12:48 | CT ---
PROCEDURE: CT Thoracic Spine without contrast HISTORY: difficulty walking COMPARISON: None. TECHNIQUE: Axial computed tomography images were obtained of the thoracic spine without intravenous contrast. Coronal and sagittal reformatted images were created and reviewed. Radiation dose: Total exam DLP = 1076.88 MGy-cm. This CT exam was performed using one or more of the following dose reduction techniques: Automated exposure control, adjustment of the mA and/or kV according to patient size, and/or use of iterative reconstruction technique. FINDINGS: VERTEBRAE: No acute compression fractures no retropulsed fragments. Vertebral bodies exhibit normal stature on. Vertebral bodies and facets normally aligned. There are no destructive changes. No obvious suspicious lytic or blastic lesions. DISCS/SPINAL CANAL/NEURAL FORAMINA: Multilevel degenerative spondylosis. . Minor multilevel anterior disc space narrowing with marginal anterolateral osteophyte formation the largest of which are located in the lower thoracic region. There are no disc herniations nor significant disc bulges. The central canal appears adequate throughout. Visualized exit foramina appear adequate so far as can be seen as well. PARASPINAL SOFT TISSUES: Unremarkable. OTHER FINDINGS: Incidental note is made of a small approximately 4 mm subpleural nodule posterolateral aspect right lung apex which may be postinflammatory. Follow-up CT scan at interval recommended to assess stability and exclude other pathology. Small hiatal hernia. Few small nonspecific mediastinal lymph nodes. IMPRESSION: No evidence of acute compression fractures no retropulsed fragments. Multilevel degenerative spondylosis as described. No evidence of disc herniation or significant disc bulge. No significant canal stenosis. . There is small subpleural nodule right lung apex. Follow-up CT scan at interval recommended to assess stability and exclude other pathology See above discussion for additional details and findings
--- NOTE | 2017-04-19 13:54 | PQF GENQUE ---
Dr. Hearn, Etiology of Chest Pain? if known OR: Unable to determine H and P: Assess: (1) Chest pain on exertion Assessment and Plan: Bradycardia ,Multiple Somatic Symptoms: Near-syncope Vs Vertigo Serial Troponin and EKG O2 via NC ,ASA and BB ,Nitro S/L PRN Chest pain ,2D Echo Cardiology Consulted May Need PST if ACS Ruled out Status: Acute (2) Diabetes mellitus Status: Chronic (3) Hypertension, essential Status: Chronic Cardiology progress note : Three sets of troponins are negative. Chest CT angio , no evidence of pulmonary embolus. Pulmonary nodules are noted. [place] is ruled out ; continue telemetry monitoring Continue current BuSpar, Cogentin, Flexeril, subcutaneous Lovenox at 40 mg daily as DVT prophylaxis, continue hydrochlorothiazide 12.5 mg once a day, Toprol-XL 50 mg once a day beside antidepressants. Obtain head CT scan without contrast as well as CT scan of the thoracolumbar spines. This form is a permanent part of the medical record Clarification of your documentation is requested to better reflect the severity of illness and intensity of treatment of your patient. Indicators present [] Specify: [] [] Specify: [] [] Specify: [] [] Specify: [] Location in the medical record that reflects the above clinical findings: [] Treatment Provided: [] PHYSICIAN'S RESPONSE Based on your medical judgment of the clinical indicators outlined above please clarify the following: [] Practitioner response [] If unable to determine, please check the box, sign and date. Present On Admission (POA) Indicator: [] Present at the time of admission [] Not present at the time of admission [] Clinically Undetermined In responding to this query, please exercise your independent professional judgment. The fact that a question is asked does not imply that any particular answer is desired or expected. Thank you for your clarification on this documentation. If you have any questions please call. * Thank you, Radha Eric RN BSN ext. #[phone]: Gloria Joy RN MTDD
--- NOTE | 2017-04-19 17:09 | PN ---
SUBJECTIVE: The patient denies chest pain. She complains of difficulty ambulating; however, when I stood up the patient and she started ambulating, she has a normal gait and then she stated that when she has to walk for few blocks, she feels her weakness in the lower extremity. PHYSICAL EXAMINATION: VITAL SIGNS: Blood pressure 105/65, heart rate 64, temperature 98.5, respiration 20. HEENT: Normocephalic. CHEST: Clear. HEART: S1 and S2 regular. EXTREMITIES: No edema. LABORATORY DATA: Today's blood sugar is 95 and [address] scan revealed no evidence of acute compression fracture, multilevel degenerative spondylosis, no evidence of disk herniation. Lumbar spine CT scan; no acute fracture, multilevel degenerative spondylosis most notably affecting L4-L5. Head CT scan without contrast; no evidence of acute intracranial abnormality. Echocardiogram; normal ejection fraction. ASSESSMENT: 1. Atypical chest pain, myocardial infarction ruled out. 2. Hypertension. 3. Diabetes mellitus. 4. Degenerative changes of the lumbar and thoracic spines. 5. Depression. 6. Chronic obstructive lung disease. RECOMMENDATIONS: Continue current subcutaneous Lovenox, hydrochlorothiazide, Protol-XL, Ultram, Zoloft, Flexeril, Glucophage, BuSpar, and Cogentin. Case was discussed with PANEL CUTTER. The patient can be discharged from the cardiac point of view with an outpatient stress test by her primary physician. Denis Omalley MD
--- NOTE | 2017-04-19 22:22 | CP.PCM.DIS ---
Provider - Provider Date of Admission: 04/17/17 18:15 Attending physician: Jm Hearn MD Time Spent in preparation of Discharge (in minutes): 35 Diagnosis - Discharge Diagnosis (1) Chest pain on exertion Status: Acute (2) Diabetes mellitus Status: Chronic (3) Hypertension, essential Status: Chronic Hospital Course - Lab Results Lab Results: Most Recent Lab Values WBC 6.4 K/uL (4.8-10.8) 04/17/17 12:05 RBC 3.79 Mil/uL (3.80-5.20) L 04/17/17 12:05 Hgb 11.4 g/dL (12.0-16.0) L 04/17/17 12:05 Hct 33.9 % (34.0-47.0) L 04/17/17 12:05 MCV 89.5 fl (81.0-99.0) 04/17/17 12:05 MCH 30.2 pg (27.0-31.0) 04/17/17 12:05 MCHC 33.8 g/dL (33.0-37.0) 04/17/17 12:05 RDW 13.4 % (11.5-14.5) 04/17/17 12:05 Plt Count 224 K/uL (130-400) 04/17/17 12:05 MPV 9.3 fl (7.2-11.7) 04/17/17 12:05 Neut % (Auto) 63.2 % (50.0-75.0) 04/17/17 12:05 Lymph % (Auto) 27.1 % (20.0-40.0) 04/17/17 12:05 [place] % (Auto) 7.1 % (0.0-10.0) 04/17/17 12:05 Eos % (Auto) 2.2 % (0.0-4.0) 04/17/17 12:05 Baso % (Auto) 0.4 % (0.0-2.0) 04/17/17 12:05 Neut # 4.0 K/uL (1.8-7.0) 04/17/17 12:05 Lymph # 1.7 K/uL (1.0-4.3) 04/17/17 12:05 [place] # 0.5 K/uL (0.0-0.8) 04/17/17 12:05 Eos # 0.1 K/uL (0.0-0.7) 04/17/17 12:05 Baso # 0.0 K/uL (0.0-0.2) 04/17/17 12:05 PT 11.1 Seconds (9.8-13.1) 04/17/17 12:05 INR 1.1 (0.9-1.2) 04/17/17 12:05 APTT 36.8 Seconds (25.6-37.1) 04/17/17 12:05 D-Dimer, Quantitative 304 ng/mlDDU (0-230) H 04/17/17 15:00 Sodium 138 mmol/l (132-148) 04/17/17 12:05 Potassium 4.4 MMOL/L (3.6-5.0) 04/17/17 12:05 Chloride 105 mmol/L (98-107) 04/17/17 12:05 Carbon Dioxide 25 mmol/L (22-30) 04/17/17 12:05 Anion Gap 13 (10-20) 04/17/17 12:05 BUN 19 mg/dl (7-17) H 04/17/17 12:05 Creatinine 0.7 mg/dL (0.7-1.2) 04/17/17 12:05 Est GFR ( Amer) > 60 04/17/17 12:05 Est GFR (Non-Af Amer) > 60 04/17/17 12:05 POC Glucose (mg/dL) 200 mg/dL (65-110) H 04/19/17 11:09 Random Glucose 111 mg/dL (65-105) H 04/17/17 12:05 Calcium 9.2 mg/dL (8.4-10.2) 04/17/17 12:05 Total Bilirubin 0.3 mg/dl (0.2-1.3) 04/17/17 12:05 AST 27 U/L (14-36) 04/17/17 12:05 ALT 35 U/L (9-52) 04/17/17 12:05 Alkaline Phosphatase 57 U/L (38-126) 04/17/17 12:05 Troponin I < 0.0120 ng/mL (0.00-0.120) 04/18/17 06:00 NT-Pro-B Natriuret Pep 133 pg/ml (0-900) 04/17/17 12:05 Total Protein 7.0 G/DL (6.3-8.2) 04/17/17 12:05 Albumin 4.1 g/dL (3.5-5.0) 04/17/17 12:05 Globulin 2.9 gm/dL (2.2-3.9) 04/17/17 12:05 Albumin/Globulin Ratio 1.4 (1.0-2.1) 04/17/17 12:05 TSH 3rd Generation 0.89 mIU/ML (0.46-4.68) 04/17/17 12:05 Urine Color Yellow (YELLOW) 04/17/17 12:00 Urine Clarity Slighty-cloudy (Clear) 04/17/17 12:00 Urine pH 6.0 (5.0-8.0) 04/17/17 12:00 Ur Specific [place] 1.033 (1.003-1.030) H 04/17/17 12:00 Urine Protein 30 mg/dL (NEGATIVE) 04/17/17 12:00 Urine Glucose (UA) Neg mg/dL (Normal) 04/17/17 12:00 Urine Ketones Negative mg/dL (NEGATIVE) 04/17/17 12:00 Urine Blood Negative (NEGATIVE) 04/17/17 12:00 Urine Nitrate Negative (NEGATIVE) 04/17/17 12:00 Urine Bilirubin Negative (NEGATIVE) 04/17/17 12:00 Urine Urobilinogen 0.2-1.0 mg/dL (0.2-1.0) 04/17/17 12:00 Ur Leukocyte Esterase Neg [place]/uL (Negative) 04/17/17 12:00 Urine RBC (Auto) 2 /hpf (0-3) 04/17/17 12:00 Urine Microscopic WBC 1 /hpf (0-5) 04/17/17 12:00 Ur Squamous Epith Cells 1 /hpf (0-5) 04/17/17 12:00 Urine Bacteria Rare (<OCC) 04/17/17 12:00 Discharge Exam - Head Exam Head Exam: ATRAUMATIC, NORMAL INSPECTION, NORMOCEPHALIC Discharge Plan - Follow Up Plan Condition: STABLE Disposition: HOME/ ROUTINE Additional Instructions: patient cleared for discharge to Home today by and DR.Seman Khan wnl: EF 65-70% CT Lumbar spine / CT Thoracic spine results wnl f/u outpatient stress test f/u with PMD Referrals: Don Peterson MD [Family Provider] -
== END 2017-04-19 15:00 | disposition home or self-care (01) | DRG 313 ==
LOC: H.ER 10:33 → H.ERHOLD 14:08 → H.TEL 15:47 → OBSVTOIN 18:15
PROVIDERS: ADMIT Internal Medicine; ATTEND Internal Medicine
PROC: 3E0234Z Introduction of Serum, Toxoid and Vaccine into Muscle, Percutaneous Approach (ICD-10-PCS; principal; 2017-04-17)
DX: R07.89 Other chest pain (principal); I10 Essential (primary) hypertension; E11.9 Type 2 diabetes mellitus without complications; Z23 Encounter for immunization; Z88.0 Allergy status to penicillin; Z88.6 Allergy status to analgesic agent; Z91.018 Allergy to other foods; J44.9 Chronic obstructive pulmonary disease, unspecified; K21.9 Gastro-esophageal reflux disease without esophagitis; Z87.891 Personal history of nicotine dependence; F31.9 Bipolar disorder, unspecified; R00.1 Bradycardia, unspecified; F41.9 Anxiety disorder, unspecified; M19.90 Unspecified osteoarthritis, unspecified site

== ENCOUNTER 2017-12-02 09:02 | Observation (INO) | payer MEDICARE, MEDICAID ==
[2017-12-02] MEDS ORDERED: Sodium Chloride 0.9% 1,000 ML IV STA ×2 (09:30→11:57)
--- NOTE | 2017-12-02 09:50 | ED PDOC ---
HPI: General Adult Time Seen by Provider: 12/02/17 09:29 Chief Complaint (Nursing): Dizziness/Lightheaded Chief Complaint (Provider): Weakness History Per: Patient History/Exam Limitations: no limitations Onset/Duration Of Symptoms: Days (3 weeks) Additional Complaint(s): Pt. with weakness all over for 3 weeks. Since yesterday with dyspnea on exertion, chest pain, dizziness, blurry vision. No syncope. No numbness, tingles, neck pain. Has mild headache, not worst in her life. No fever, cough , leg pain. No incontinence or constipation. No dysuria. See Dr. Santamaria yesterday for the symptoms and given neurontin. PCP Dr. Don Peterson. NIHSS Stroke Scale - Date/Time Evaluation Performed Date Performed: 12/02/17 Time Performed: 09:10 When Was NIHSS Performed: Baseline - How Severe is the Stroke Level of Consciousness: 0=Alert LOC to Questions: 0=Both comments correct LOC to commands: 0=Obeys both correctly Best Gaze: 0=Normal Visual: 0=No visual loss Facial: 0=Normal Motor Arm - Left: 0=No drift Motor Arm - Right: 0=No drift Motor Leg - Left: 0=No drift Motor Leg - Right: 0=No drift Limb Ataxia: 0=Absent Sensory: 0=Normal Best Language: 0=No aphasia Dysarthia: 0=Normal articulation Extinction & Inattention (Neglect): 0=Normal, no object Score: 0 rTPA Inclusion/Exclusion - Refusal of Treatment Patient Refused Treatment: No - Inclusion Criteria for Altepase Patient is 18 years or Older: Yes The Clinical Diagnosis of Ischemic Stroke That is Causing a Potentially Disabling Neurological Deficit: No Time of Onset is Well Established to be Less Than 270 Minute Before Treatment Would Begin: No Risk/Benefit Discussed With Patient/Family Member Present: No Past Medical History Reviewed: Nursing Documentation, Vital Signs Vital Signs: Last Vital Signs Temp 98 F 12/02/17 10:14 Pulse 81 12/02/17 10:14 Resp 17 12/02/17 10:14 BP 146/73 12/02/17 10:14 Pulse Ox 98 12/02/17 12:44 - Medical History PMH: Anxiety, Arthritis, Bipolar Disorder, Depression, Diabetes (type 2), Gastritis, GERD, HTN (NOT ON MEDS), Hypercholesterolemia Denies: HIV, Chronic Kidney Disease - Surgical History Surgical History: (4 ) - Family History Family History: States: Unknown Family Hx - Social History Current smoker - smoking cessation education provided: No Alcohol: None Drugs: Denies - Immunization History Hx Tetanus Toxoid Vaccination: No Hx Influenza Vaccination: No Hx Pneumococcal Vaccination: No - Home Medications Home Medications: Ambulatory Orders Medication Instructions Recorded No Known Home Med 05/12/17 - Allergies Allergies/Adverse Reactions: Allergies Allergy/AdvReac Type Severity Reaction Status Date / Time ibuprofen Allergy RASH Verified 12/02/17 09:24 Penicillins Allergy RASH Verified 12/02/17 09:24 strawberry Allergy VOMITING Verified 12/02/17 09:24 Review of Systems ROS Statement: Except As Marked, All Systems Reviewed And Found Negative Constitutional: Positive for: Weakness Cardiovascular: Positive for: Chest Pain Respiratory: Positive for: SOB with Exertion Neurological: Positive for: Weakness, Headache, Dizziness Physical Exam - Reviewed Nursing Documentation Reviewed: Yes Vital Signs Reviewed: Yes - Physical Exam Appears: Positive for: Non-toxic, No Acute Distress Head Exam: Positive for: ATRAUMATIC, NORMAL INSPECTION, NORMOCEPHALIC Skin: Positive for: Normal Color, Warm, DRY Eye Exam: Positive for: EOMI, Normal appearance, PERRL ENT: Positive for: Normal ENT Inspection. Negative for: Nasal Congestion Neck: Positive for: Normal, Painless ROM, Supple Cardiovascular/Chest: Positive for: Regular Rate, Rhythm Respiratory: Positive for: CNT, Normal Breath Sounds Gastrointestinal/Abdominal: Positive for: Normal Exam, Soft. Negative for: Tenderness Back: Positive for: Normal Inspection. Negative for: L CVA Tenderness, R CVA Tenderness Extremity: Positive for: Normal ROM. Negative for: Tenderness, Pedal Edema Neurologic/Psych: Positive for: Alert, fleet manager II-XII, Oriented. Negative for: Motor/Sensory Deficits (4/5 strength all extremities), Aphasia, Facial Droop - Laboratory Results Result Diagrams: 12/02/17 10:00 12/02/17 10:00 Interpretation Of Abn Labs: 26 bun - ECG ECG: Positive for: Interpreted By Me, Viewed By Me ECG Rhythm: Positive for: Normal QRS, Normal ST Segment, Sinus Rhythm O2 Sat by Pulse Oximetry: 98 Pulse Ox Interpretation: Normal - Radiology X-Ray: Read By Radiologist X-Ray Interpretation: No Acute Disease - CT Scan/US ct Other Rad Studies (CT/US): Read By Radiologist Other Rad Interpretation: no acute - Progress ED Course And Treament: 1248: Stable. AAOx3. Pain free. Spoke with Dr. Higuera. Will admit tele obs. Disposition - Clinical Impression Clinical Impression: Dizziness, Weakness, Chest pain, Dehydration - Patient ED Disposition Is Patient to be Admitted: Yes Counseled Patient/Family Regarding: Studies Performed, Diagnosis - Disposition Disposition Time: 12:30 Condition: FAIR - Pt Status Changed To: Hospital Disposition Of: Observation - POA Present On Arrival: None
--- NOTE | 2017-12-02 10:10 | CT ---
PROCEDURE: CT scan brain 12/02/2017 HISTORY: Evaluation weakness. COMPARISON: Comparison made with prior study dated 17 TECHNIQUE: Axial computed tomography images were obtained through the head/brain without intravenous contrast. Radiation dose: Total exam DLP = 811.96 mGy-cm. This CT exam was performed using one or more of the following dose reduction techniques: Automated exposure control, adjustment of the mA and/or kV according to patient size, and/or use of iterative reconstruction technique. . FINDINGS: HEMORRHAGE: No acute parenchymal, subarachnoid or extra-axial hemorrhage. BRAIN: No mass effect or edema. No atrophy or chronic microvascular ischemic changes. VENTRICLES: No obstructive hydrocephalus. CALVARIUM: Unremarkable. PARANASAL SINUSES: Mucosal thickening seen within a few ethmoid air cells MASTOID AIR CELLS: Unremarkable as visualized. No inflammatory changes. OTHER FINDINGS: None. IMPRESSION: No acute intracranial hemorrhage. Findings discussed with Dr. Dickey at 10:07 a.m.
[2017-12-02 10:18] LABS: VENOUS BLOOD GAS BASE EXCESS 10.2 mmol/L (0.0-2.0); VENOUS BLOOD GAS PCO2 50 mmHg (40-60); VENOUS BLOOD GAS PO2 50 mm/Hg (30-55); VENOUS BLOOD PH 7.46 (7.32-7.43)
--- NOTE | 2017-12-02 10:26 | RAD ---
HISTORY: Code Stroke COMPARISON: Comparison chest 04/17/2017 FINDINGS: LUNGS: No active pulmonary disease. PLEURA: No significant pleural effusion identified, no pneumothorax apparent. CARDIOVASCULAR: Normal. OSSEOUS STRUCTURES: No significant abnormalities. VISUALIZED UPPER ABDOMEN: Normal. OTHER FINDINGS: None. IMPRESSION: No active disease.
[2017-12-02 10:28] LABS: SQUAMOUS EPITHIAL 1 /hpf (0-5); URINE BACTERIA RARE (<OCC); URINE BILIRUBIN NEGATIVE (NEGATIVE); URINE BLOOD NEGATIVE (NEGATIVE); URINE CLARITY SLIGHTY-CLOUDY (Clear); URINE COLOR YELLOW (YELLOW); URINE GLUCOSE (UA) NEG (Normal); URINE LEUKOCYTE ESTERASE NEG Leu/uL (Negative); URINE PROTEIN NEGATIVE (NEGATIVE); URINE UROBILINOGEN 0.2-1.0 mg/dL (0.2-1.0)
[2017-12-02 10:31] LABS: PARTIAL THROMBOPLASTIN TIME 36.5 Seconds (25.6-37.1); PROTHROMBIN TIME 11.5 Seconds (9.8-13.1)
[2017-12-02 10:33] LABS: BASO % 0.5 % (0.0-2.0); EOS # 0.1 K/uL (0.0-0.7); EOS % 1.4 % (0.0-4.0); HEMOGLOBIN 12.5 g/dL (12.0-16.0); LYMPH # 1.5 K/uL (1.0-4.3); LYMPH % 22.5 % (20.0-40.0); MEAN CELL VOLUME 89.1 fl (81.0-99.0); MEAN CORPUSCULAR HEMOGLOBIN 30.4 pg (27.0-31.0); MEAN CORPUSCULAR HGB CONC 34.1 g/dL (33.0-37.0); MEAN PLATELET VOLUME 9.8 fl (7.2-11.7); MONO # 0.6 K/uL (0.0-0.8); MONO % 9.8 % (0.0-10.0); NEUT # 4.3 K/uL (1.8-7.0); NEUT % 65.8 % (50.0-75.0); NRBC % 0.1 % (0.0-0.0); RBC 4.1 Mil/uL (3.80-5.20); RED CELL DISTRIBUTION WIDTH 13.6 % (11.5-14.5); WHITE BLOOD COUNT 6.5 K/uL (4.8-10.8)
[2017-12-02 10:37] LABS: ALB/GLOB RATIO 1.3 (1.0-2.1); ALBUMIN 4.5 g/dL (3.5-5.0); ALT/SGPT 35 U/L (9-52); AST/SGOT 63 U/L (14-36); BLOOD UREA NITROGEN 26 mg/dl (7-17); CALCIUM 9.5 mg/dL (8.4-10.2); GFR AFRICAN-AMERICAN > 60; GFR NON-AFRICAN AMERICAN > 60; HDL CHOLESTEROL 57 MG/DL (30-70)
[2017-12-02 10:49] LABS: B-TYPE NATRIURETIC PEPTIDE 56.2 pg/ml (0-900); LDL CHOLESTEROL 97 mg/dL (0-129)
--- NOTE | 2017-12-02 14:11 | CP.PCM.HP ---
History of Present Illness - History of Present Illness History of Present Illness: 57 yo ,f, PMhx/o HTN,DM, Anxiety, Bipolar disorder, GERD, with multiple somatic symptoms who presents to ED c/o left side chest pain started today at 3am, not radiated , 7/10 intensity, reproducible, no pleuritic, no on exertion, associated with left arm weakness sensation, and mild SOB. Patient also c/o dizziness for the last 3 days, associated with frontal headache x the last 2 days and blurry vision , partially alleviated with naproxen, Tylenol. Patient also c/o chills for the last 2 weeks w/o fever and under treatment for vaginal yeast infection with fluconazole. she denies fever, n,v,d, abd pain, cough, URI symptoms, numbness, confusion, syncope, calf pain, leg swelling. Patient reports a hx/o Migraine for many years since she lived in [facility] with episodes 3 t/week. Reports seen Neurology Dr Cohn yesterday and prescribed Neurontin, that she has not started taking yet. On evaluation patient in Ed in not acute distress, no SOB, no chest pain and reports mild headache. PMD: Don Peterson PMhx: HTN,DM, Anxiety, Bipolar disorder, GERD Allergies: Ibuprofen. Rash Surgl C section x 4 PShx: Denies ETOH, rect drugs, former smoker, quit 2 years ago. 3PPD/day x 8 years Present on Admission - Present on Admission Any Indicators Present on Admission: No History of DVT/PE: No History of Uncontrolled Diabetes: No Urinary Catheter: No Decubitus Ulcer Present: No Review of Systems - Review of Systems All systems: reviewed and no additional remarkable complaints except - Cardiovascular Cardiovascular: Chest Pain - Respiratory Respiratory: As Per HPI, Dyspnea - Gastrointestinal Gastrointestinal: As Per HPI - Neurological Neurological: Dizziness, Headaches Past Patient History - Infectious Disease Hx of Infectious Diseases: None - Past Medical History & Family History Past Medical History?: Yes - Past Social History Alcohol: None Drugs: Denies - CARDIAC Hx Hypercholesterolemia: Yes Hx Hypertension: Yes (NOT ON MEDS) - PULMONARY Hx Respiratory Disorders: No - NEUROLOGICAL Hx Neurological Disorder: No - HEENT Hx HEENT Problems: No - RENAL Hx Chronic Kidney Disease: No - ENDOCRINE/METABOLIC Hx Endocrine Disorders: Yes Hx Diabetes Mellitus Type 2: Yes (NOT ON MEDS) - HEMATOLOGICAL/ONCOLOGICAL Hx Human Immunodeficiency Virus (HIV): No - INTEGUMENTARY Hx Dermatological Problems: No - MUSCULOSKELETAL/RHEUMATOLOGICAL Hx Arthritis: Yes - GASTROINTESTINAL Hx Gastritis: Yes - GENITOURINARY/GYNECOLOGICAL Hx Genitourinary Disorders: No - PSYCHIATRIC Hx Anxiety: Yes Hx Bipolar Disorder: Yes Hx Depression: Yes - SURGICAL HISTORY Hx Surgeries: Yes Hx Section: Yes Hx Hysterectomy: Yes - ANESTHESIA Hx Anesthesia: Yes Hx Anesthesia Reactions: No Hx Malignant Hyperthermia: No Meds Allergies/Adverse Reactions: Allergies Allergy/AdvReac Type Severity Reaction Status Date / Time ibuprofen Allergy RASH Verified 12/02/17 09:24 Penicillins Allergy RASH Verified 12/02/17 09:24 strawberry Allergy VOMITING Verified 12/02/17 09:24 Physical Exam - Constitutional Appears: Toxic, No Acute Distress - Head Exam Head Exam: ATRAUMATIC, NORMOCEPHALIC - Eye Exam Eye Exam: EOMI, Normal appearance, PERRL. absent: Nystagmus, Periorbital swelling - ENT Exam ENT Exam: Mucous Membranes Moist - Neck Exam Neck exam: Positive for: Full Rom - Respiratory Exam Respiratory Exam: Clear to Auscultation Bilateral. absent: Rales, Rhonchi, Wheezes - Cardiovascular Exam Cardiovascular Exam: REGULAR RHYTHM, +S1, +S2 - GI/Abdominal Exam GI & Abdominal Exam: Normal Bowel Sounds, Soft. absent: Guarding, Tenderness - Extremities Exam Extremities exam: Positive for: normal inspection. Negative for: calf tenderness - Back Exam Back exam: NORMAL INSPECTION - Neurological Exam Neurological exam: Alert, Normal Gait, Oriented x3 - Psychiatric Exam Psychiatric exam: Normal Affect, Normal Mood - Skin Skin Exam: Intact Results - Vital Signs Recent Vital Signs: Last Vital Signs Temp 98 F 12/02/17 10:14 Pulse 81 12/02/17 10:14 Resp 17 12/02/17 10:14 BP 146/73 12/02/17 10:14 Pulse Ox 98 12/02/17 13:11 - Labs Result Diagrams: 12/02/17 10:00 12/02/17 13:40 Labs: Laboratory Results - last 24 hr 12/02/17 12/02/17 12/02/17 09:20 09:20 09:48 WBC RBC Hgb Hct MCV MCH MCHC RDW Plt Count MPV Neut % (Auto) Lymph % (Auto) [place] % (Auto) Eos % (Auto) Baso % (Auto) Neut # (Auto) Lymph # (Auto) [place]ett # (Auto) Eos # (Auto) Baso # (Auto) PT INR APTT pO2 50 VBG pH 7.46 H VBG pCO2 50 VBG HCO3 32.6 VBG Total CO2 37.1 H VBG O2 Sat (Calc) 88.2 H VBG Base Excess 10.2 H VBG Potassium 2.9 L A-a O2 Difference 37.0 Sodium 137.0 Chloride 101.0 Glucose 125 H Lactate 0.9 FiO2 21.0 Potassium Carbon Dioxide Anion Gap BUN Creatinine Est GFR ( Amer) Est GFR (Non-Af Amer) POC Glucose (mg/dL) 144 H Random Glucose Calcium Phosphorus Magnesium Total Bilirubin AST ALT Alkaline Phosphatase Troponin I NT-Pro-B Natriuret Pep Total Protein Albumin Globulin Albumin/Globulin Ratio Triglycerides Cholesterol LDL Cholesterol Direct HDL Cholesterol Venous Blood Potassium 2.9 L Urine Color Yellow Urine Clarity Slighty-cloudy Urine pH 6.0 Ur Specific [place] 1.021 Urine Protein Negative Urine Glucose (UA) Neg Urine Ketones Negative Urine Blood Negative Urine Nitrate Negative Urine Bilirubin Negative Urine Urobilinogen 0.2-1.0 Ur Leukocyte Esterase Neg Urine RBC (Auto) 1 Urine Microscopic WBC < 1 Ur Squamous Epith Cells 1 Urine Bacteria Rare Blood Type Blood Type Confirm Antibody Screen BBK History Checked 12/02/17 12/02/17 12/02/17 10:00 10:00 10:00 WBC 6.5 RBC 4.10 Hgb 12.5 Hct 36.5 MCV 89.1 MCH 30.4 MCHC 34.1 RDW 13.6 Plt Count 246 MPV 9.8 Neut % (Auto) 65.8 Lymph % (Auto) 22.5 Pickett % (Auto) 9.8 Eos % (Auto) 1.4 Baso % (Auto) 0.5 Neut # (Auto) 4.3 Lymph # (Auto) 1.5 Pickett # (Auto) 0.6 Eos # (Auto) 0.1 Baso # (Auto) 0.0 PT 11.5 INR 1.0 APTT 36.5 pO2 VBG pH VBG pCO2 VBG HCO3 VBG Total CO2 VBG O2 Sat (Calc) VBG Base Excess VBG Potassium A-a O2 Difference Sodium 138 Chloride 97 L Glucose Lactate FiO2 Potassium 3.7 Carbon Dioxide 28 Anion Gap 17 BUN 26 H Creatinine 0.7 Est GFR ( Amer) > 60 Est GFR (Non-Af Amer) > 60 POC Glucose (mg/dL) Random Glucose 122 H Calcium 9.5 Phosphorus 3.6 Magnesium 2.2 Total Bilirubin 0.9 AST 63 H D ALT 35 Alkaline Phosphatase 65 Troponin I < 0.0120 NT-Pro-B Natriuret Pep 56.2 Total Protein 8.1 Albumin 4.5 Globulin 3.6 Albumin/Globulin Ratio 1.3 Triglycerides 170 H Cholesterol 218 H LDL Cholesterol Direct 97 HDL Cholesterol 57 Venous Blood Potassium Urine Color Urine Clarity Urine pH Ur Specific [place] Urine Protein Urine Glucose (UA) Urine Ketones Urine Blood Urine Nitrate Urine Bilirubin Urine Urobilinogen Ur Leukocyte Esterase Urine RBC (Auto) Urine Microscopic WBC Ur Squamous Epith Cells Urine Bacteria Blood Type Blood Type Confirm Antibody Screen BBK History Checked 12/02/17 12/02/17 12/02/17 10:00 10:25 13:40 WBC RBC Hgb Hct MCV MCH MCHC RDW Plt Count MPV Neut % (Auto) Lymph % (Auto) [place]ett % (Auto) Eos % (Auto) Baso % (Auto) Neut # (Auto) Lymph # (Auto) [place] # (Auto) Eos # (Auto) Baso # (Auto) PT INR APTT pO2 VBG pH VBG pCO2 VBG HCO3 VBG Total CO2 VBG O2 Sat (Calc) VBG Base Excess VBG Potassium A-a O2 Difference Sodium Chloride Glucose Lactate FiO2 Potassium 3.1 L Carbon Dioxide Anion Gap BUN Creatinine Est GFR ( Amer) Est GFR (Non-Af Amer) POC Glucose (mg/dL) Random Glucose Calcium Phosphorus Magnesium Total Bilirubin AST ALT Alkaline Phosphatase Troponin I NT-Pro-B Natriuret Pep Total Protein Albumin Globulin Albumin/Globulin Ratio Triglycerides Cholesterol LDL Cholesterol Direct HDL Cholesterol Venous Blood Potassium Urine Color Urine Clarity Urine pH Ur Specific [place] Urine Protein Urine Glucose (UA) Urine Ketones Urine Blood Urine Nitrate Urine Bilirubin Urine Urobilinogen Ur Leukocyte Esterase Urine RBC (Auto) Urine Microscopic WBC Ur Squamous Epith Cells Urine Bacteria Blood Type O POSITIVE Blood Type Confirm O POSITIVE Antibody Screen Negative BBK History Checked No verified bt Assessment & Plan - Assessment and Plan (Free Text) Plan: 57 yo ,f, PMhx/o HTN,DM, Anxiety, Bipolar disorder, GERD admitted for dehydration, chest pain, dizziness Assessment/Plan 1) Chest pain to r/o ACS -reproducible may be costochondritis -EKg NSR, trop x 1 neg, CXR normal -f/u trop, EKG 2) Headache -chronic -may be migraine etiology or for analgesic withdrawal -patient reports chronic ingestion of Tylenol, NSAId -CT head: normal -Case d/w neuro: will see patient. No CVA 3) Hypokalemia may be 2/2 HCTZ diuretics -K 3.1 -Kdur 40 PO -Hold HCTZ -f/u CMP tomorrow 4) Dizziness -may be secondary to kypokalemia, dehydration -f/u orthostatic VS -BUN mild increased -IV NS 2L ED 5) DM c/w home medications 6) Bipolar disorder -continue home medications 7) DVT Prophylaxis -Lovenox 40 mg sc daily
[2017-12-02] MEDS ORDERED: Potassium Chloride 20 mEq ER Tab PO ONE ×2 (14:41→14:44)
[2017-12-02] MEDS ORDERED: Potassium Chloride 20 mEq 100 ML IVPB SCH (15:00)
[2017-12-02] MEDS ORDERED: Glucagon Recombinant 1 mg Inj IM PRN (15:00)
[2017-12-02] MEDS ORDERED: Dextrose 50% SYRINGE Inj (50 ml) IV PRN (15:00)
[2017-12-02] MEDS: Oxycodone/Acetaminophen 5/325 mg Tab PO PRN (15:21)
[2017-12-02] MEDS: Sodium Chloride 0.9% 1,000 ML IV SCH (15:25)
[2017-12-02] MEDS: Pantoprazole 40 mg EC Tab PO SCH (17:54)
--- NOTE | 2017-12-02 22:28 | CARD ---
APPROVED REPORT EKG Measurement Heart [id number] <Conclusion> Normal sinus rhythm Normal ECG
[2017-12-03] MEDS: Sodium Chloride 0.9% 1,000 ML IV SCH (01:38)
[2017-12-03 05:43] LABS: IRON 87 ug/dL (37-170)
[2017-12-03 05:48] LABS: ALB/GLOB RATIO 1.3 (1.0-2.1); ALBUMIN 3.8 g/dL (3.5-5.0); ALT/SGPT 39 U/L (9-52); AST/SGOT 25 U/L (14-36); BLOOD UREA NITROGEN 20 mg/dl (7-17); CALCIUM 8.9 mg/dL (8.4-10.2); GFR AFRICAN-AMERICAN > 60; GFR NON-AFRICAN AMERICAN > 60
[2017-12-03 05:53] LABS: % IRON SATURATION 29 % (20-55); TOTAL IRON BINDING CAPACITY 302 ug/dL (250-450)
[2017-12-03 08:38] VITALS: BP 127/79; RESP 19; TEMP 97.7; O2SAT 96
[2017-12-03] MEDS: Pantoprazole 40 mg EC Tab PO SCH (08:38)
[2017-12-03] MEDS: Oxycodone/Acetaminophen 5/325 mg Tab PO PRN (08:41)
[2017-12-03 08:45] VITALS: PULSE 56
[2017-12-03] MEDS ORDERED: Dexamethasone 10 MG in Dextrose 5% In Water 50 ML IV ONE (08:56)
[2017-12-03] MEDS ORDERED: Enoxaparin 40 mg Syringe SC SCH (09:00)
[2017-12-03] MEDS ORDERED: Magnesium Sulfate 2 gm/50 ml 2 GM/50 ML BAG IVPB ONE (09:15)
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
--- NOTE | 2017-12-03 09:56 | CP.PCM.DIS ---
Provider - Provider Date of Admission: 12/02/17 13:08 Attending physician: Dwight Higuera MD Consults: Psychiatry Dr Bardales Time Spent in preparation of Discharge (in minutes): 20 Diagnosis - Discharge Diagnosis (1) Chest pain Status: Resolved (2) Dizziness Status: Resolved (3) Hypokalemia Status: Resolved Hospital Course - Lab Results Lab Results: Most Recent Lab Values WBC 6.5 K/uL (4.8-10.8) 12/02/17 10:00 RBC 4.10 Mil/uL (3.80-5.20) 12/02/17 10:00 Hgb 12.5 g/dL (12.0-16.0) 12/02/17 10:00 Hct 36.5 % (34.0-47.0) 12/02/17 10:00 MCV 89.1 fl (81.0-99.0) 12/02/17 10:00 MCH 30.4 pg (27.0-31.0) 12/02/17 10:00 MCHC 34.1 g/dL (33.0-37.0) 12/02/17 10:00 RDW 13.6 % (11.5-14.5) 12/02/17 10:00 Plt Count 246 K/uL (130-400) 12/02/17 10:00 MPV 9.8 fl (7.2-11.7) 12/02/17 10:00 Neut % (Auto) 65.8 % (50.0-75.0) 12/02/17 10:00 Lymph % (Auto) 22.5 % (20.0-40.0) 12/02/17 10:00 [place] % (Auto) 9.8 % (0.0-10.0) 12/02/17 10:00 Eos % (Auto) 1.4 % (0.0-4.0) 12/02/17 10:00 Baso % (Auto) 0.5 % (0.0-2.0) 12/02/17 10:00 Neut # (Auto) 4.3 K/uL (1.8-7.0) 12/02/17 10:00 Lymph # (Auto) 1.5 K/uL (1.0-4.3) 12/02/17 10:00 [place] # (Auto) 0.6 K/uL (0.0-0.8) 12/02/17 10:00 Eos # (Auto) 0.1 K/uL (0.0-0.7) 12/02/17 10:00 Baso # (Auto) 0.0 K/uL (0.0-0.2) 12/02/17 10:00 PT 11.5 Seconds (9.8-13.1) 12/02/17 10:00 INR 1.0 (0.9-1.2) 12/02/17 10:00 APTT 36.5 Seconds (25.6-37.1) 12/02/17 10:00 pO2 50 mm/Hg (30-55) 12/02/17 09:48 VBG pH 7.46 (7.32-7.43) H 12/02/17 09:48 VBG pCO2 50 mmHg (40-60) 12/02/17 09:48 VBG HCO3 32.6 mmol/L 12/02/17 09:48 VBG Total CO2 37.1 mmol/L (22-28) H 12/02/17 09:48 VBG O2 Sat (Calc) 88.2 % (40-65) H 12/02/17 09:48 VBG Base Excess 10.2 mmol/L (0.0-2.0) H 12/02/17 09:48 VBG Potassium 2.9 mmol/L (3.6-5.2) L 12/02/17 09:48 A-a O2 Difference 37.0 mm/Hg 12/02/17 09:48 Sodium 137.0 mmol/L (132-148) 12/02/17 09:48 Chloride 101.0 mmol/L (98-107) 12/02/17 09:48 Glucose 125 mg/dL (65-105) H 12/02/17 09:48 Lactate 0.9 mmol/L (0.7-2.1) 12/02/17 09:48 FiO2 21.0 % 12/02/17 09:48 Sodium 143 mmol/l (132-148) 12/03/17 04:40 Potassium 3.7 MMOL/L (3.6-5.0) 12/03/17 04:40 Chloride 104 mmol/L (98-107) 12/03/17 04:40 Carbon Dioxide 28 mmol/L (22-30) 12/03/17 04:40 Anion Gap 15 (10-20) 12/03/17 04:40 BUN 20 mg/dl (7-17) H 12/03/17 04:40 Creatinine 0.6 mg/dl (0.7-1.2) L 12/03/17 04:40 Est GFR ( Amer) > 60 12/03/17 04:40 Est GFR (Non-Af Amer) > 60 12/03/17 04:40 POC Glucose (mg/dL) 102 mg/dL (65-110) 12/03/17 05:58 Random Glucose 102 mg/dL (65-105) 12/03/17 04:40 Hemoglobin A1c 6.7 % (4.2-6.5) H 12/02/17 10:00 Calcium 8.9 mg/dL (8.4-10.2) 12/03/17 04:40 Phosphorus 3.6 mg/dl (2.5-4.5) 12/02/17 10:00 Magnesium 2.2 MG/DL (1.6-2.3) 12/02/17 10:00 Iron 87 ug/dL (37-170) 12/03/17 04:40 TIBC 302 ug/dL (250-450) 12/03/17 04:40 % Saturation 29 % (20-55) 12/03/17 04:40 Ferritin 121.0 ng/Ml (11.1-264.0) 12/03/17 04:40 Total Bilirubin 0.3 mg/dl (0.2-1.3) 12/03/17 04:40 AST 25 U/L (14-36) 12/03/17 04:40 ALT 39 U/L (9-52) 12/03/17 04:40 Alkaline Phosphatase 54 U/L (38-126) 12/03/17 04:40 Troponin I < 0.0120 ng/mL (0.00-0.120) 12/03/17 02:00 NT-Pro-B Natriuret Pep 56.2 pg/ml (0-900) 12/02/17 10:00 Total Protein 6.8 G/DL (6.3-8.2) 12/03/17 04:40 Albumin 3.8 g/dL (3.5-5.0) 12/03/17 04:40 Globulin 3.0 gm/dL (2.2-3.9) 12/03/17 04:40 Albumin/Globulin Ratio 1.3 (1.0-2.1) 12/03/17 04:40 Triglycerides 170 mg/DL (0-149) H 12/02/17 10:00 Cholesterol 218 mg/dL (0-199) H 12/02/17 10:00 LDL Cholesterol Direct 97 mg/dL (0-129) 12/02/17 10:00 HDL Cholesterol 57 MG/DL (30-70) 12/02/17 10:00 Vitamin B12 500 pg/mL (239-931) 12/03/17 04:40 TSH 3rd Generation 4.20 mIU/ML (0.46-4.68) 12/03/17 04:40 Venous Blood Potassium 2.9 mmol/L (3.6-5.2) L 12/02/17 09:48 Urine Color Yellow (YELLOW) 12/02/17 09:20 Urine Clarity Slighty-cloudy (Clear) 12/02/17 09:20 Urine pH 6.0 (5.0-8.0) 12/02/17 09:20 Ur Specific [place] 1.021 (1.003-1.030) 12/02/17 09:20 Urine Protein Negative mg/dL (NEGATIVE) 12/02/17 09:20 Urine Glucose (UA) Neg mg/dL (Normal) 12/02/17 09:20 Urine Ketones Negative mg/dL (NEGATIVE) 12/02/17 09:20 Urine Blood Negative (NEGATIVE) 12/02/17 09:20 Urine Nitrate Negative (NEGATIVE) 12/02/17 09:20 Urine Bilirubin Negative (NEGATIVE) 12/02/17 09:20 Urine Urobilinogen 0.2-1.0 mg/dL (0.2-1.0) 12/02/17 09:20 Ur Leukocyte Esterase Neg [place]/uL (Negative) 12/02/17 09:20 Urine RBC (Auto) 1 /hpf (0-3) 12/02/17 09:20 Urine Microscopic WBC < 1 /hpf (0-5) 12/02/17 09:20 Ur Squamous Epith Cells 1 /hpf (0-5) 12/02/17 09:20 Urine Bacteria Rare (<OCC) 12/02/17 09:20 Blood Type O POSITIVE 12/02/17 10:00 Blood Type Confirm O POSITIVE 12/02/17 10:25 Antibody Screen Negative 12/02/17 10:00 BBK History Checked No verified bt 12/02/17 10:00 - Hospital Course Hospital Course: 57 yo ,f, PMhx/o HTN,DM, Anxiety, Bipolar disorder, GERD, with multiple somatic symptoms admitted for dehydration, chest pain, dizziness . Patient with reproducible chest pain secondary to costochondritis, ekg normal troponin x 3 normal. Chest pain subsided. Dehydration resolved, hypokalemia resolved with Kdur 40 mcq. Patient seen by psyq who recommended lowering her cogentin w/ her outpatient psychiatrist. Patient seen and examined bedside with Dr Higuera. Patient hemodynamically stable, labs normal, cleared to be discharged and f/u with PMD and Psyq outpatient. Patient c/o chronic cervical pain. Discharged with Lidoderm patch and meclizine for dizziness. Discharge Exam - Head Exam Head Exam: ATRAUMATIC, NORMOCEPHALIC - Eye Exam Eye Exam: Normal appearance - ENT Exam ENT Exam: Normal Exam - Neck Exam Neck exam: Full Rom, Normal Inspection - Respiratory Exam Respiratory Exam: Clear to PA & Lateral. absent: Rales, Rhonchi - Cardiovascular Exam Cardiovascular Exam: REGULAR RHYTHM, +S1, +S2 Additional comments: reproducible chest pain left side - GI/Abdominal Exam GI & Abdominal Exam: Normal Bowel Sounds, Soft. absent: Guarding, Tenderness - Extremities Exam Extremities exam: normal inspection - Neurological Exam Neurological exam: Alert, Oriented x3 - Psychiatric Exam Psychiatric exam: Normal Affect, Normal Mood - Skin Skin Exam: Intact Discharge Plan - Discharge Medications Prescriptions: Lidocaine 5% [Lidoderm] 1 patch TOP DAILY #30 patch Meclizine [Meclizine*] 25 mg PO Q8 #30 tab - Follow Up Plan Condition: FAIR Disposition: HOME/ ROUTINE Additional Instructions: - Follow up with PMD in 7 days -F/u with Psyq Dr in 1 week. Recommended to lower dose of Cogentin by patient Psyq -Lidoderm patch apply for cervical pain -tylenol 500 mg PO as needed por pain
[2017-12-03 14:54] LABS: FOLATE 17.6 ng/mL
== END 2017-12-03 11:05 | disposition home or self-care (01) ==
LOC: H.ER 09:02 → H.ERHOLD 13:08 → H.TEL 14:56
PROVIDERS: ADMIT Family Medicine; ATTEND Family Medicine
DX: M94.0 Chondrocostal junction syndrome [Tietze] (principal); I10 Essential (primary) hypertension; E11.9 Type 2 diabetes mellitus without complications; F41.9 Anxiety disorder, unspecified; F31.9 Bipolar disorder, unspecified; K21.9 Gastro-esophageal reflux disease without esophagitis; E86.0 Dehydration; E87.6 Hypokalemia; E78.00 Pure hypercholesterolemia, unspecified; Z88.6 Allergy status to analgesic agent; Z88.0 Allergy status to penicillin; Z91.018 Allergy to other foods; K29.70 Gastritis, unspecified, without bleeding; R42 Dizziness and giddiness
CPT/HCPCS: 36415; 70450; 71045; 80053; 80061; 81003; 82607; 82728; 82746; 82803; 82948; 83036; 83540; 83550; 83735; 83880; 84100; 84132; 84443; 84484; 85025; 85610; 85730; 86850; 86900; 87040; 87086; 93005; 96360; 96361; 96372; 99285; G0378; J1650; J7040

== ENCOUNTER 2017-12-21 11:59 | Emergency (ER) | payer MEDICARE, MEDICAID ==
[2017-12-21 12:15] VITALS: BP 107/68; PULSE 67; RESP 16; TEMP 97
--- NOTE | 2017-12-21 12:58 | ED PDOC ---
HPI: Female Pain Time Seen by Provider: 12/21/17 12:57 Chief Complaint (Nursing): Female Genitourinary Chief Complaint (Provider): vaginal discomfort History Per: Patient Additional Complaint(s): 57-year-old female presents with vaginal discomfort for 2 months. Patient states she has had brown and white discharge as well as vaginal itching and irritation for 2 months. She has taken a total of 4 150 mg diflucan tabs, macrobid and flagyl but has not had any relief of her symptoms. Patient states she is currently sexually active with her boyfriend and is not sure if she is at risk for STD exposure. The patient denies any vaginal bleeding. No fever or chills. She has mild lower abdominal pain. Past Medical History Reviewed: Historical Data Vital Signs: Last Vital Signs Temp 97.0 F L 12/21/17 12:13 Pulse 67 12/21/17 12:13 Resp 16 12/21/17 12:13 BP 107/68 12/21/17 12:13 Pulse Ox 100 12/21/17 12:13 - Medical History PMH: Anxiety, Arthritis, Bipolar Disorder, Depression, Diabetes (type 2), GERD, Hypercholesterolemia - Surgical History Surgical History: (4 ) Other surgeries: hysterectomy - Family History Family History: States: No Known Family Hx - Living Arrangements Living Arrangements: With Family - Social History Current smoker - smoking cessation education provided: No Alcohol: None Drugs: Denies - Home Medications Home Medications: Ambulatory Orders Medication Instructions Recorded Benztropine [Cogentin] 5 mg PO DAILY 12/02/17 Gabapentin [Neurontin] 300 mg PO TID 12/02/17 Levocetirizine Dihydrochloride 10 mg PO BID PRN 12/02/17 [Xyzal] Metoprolol Tartrate [Lopressor] 50 mg PO DAILY 12/02/17 Pantoprazole [Protonix EC Tab] 40 mg PO DAILY 12/02/17 Risperidone [Risperdal] 3 mg PO DAILY 12/02/17 Sertraline [Zoloft] 100 mg PO DAILY 12/02/17 busPIRone [Buspar] 15 mg PO BID 12/02/17 hydroCHLOROthiazide [Microzide] 75 mg PO DAILY 12/02/17 metFORMIN [glucOPHAGE] 500 mg PO DAILY 12/02/17 traZODone [Desyrel] 100 mg PO HS 12/02/17 Lidocaine 5% [Lidoderm] 1 patch TOP DAILY #30 patch 12/03/17 Meclizine [Meclizine*] 25 mg PO Q8 #30 tab 12/03/17 Doxycycline Monohydrate 100 mg PO BID #14 tablet 12/21/17 Fluconazole [Diflucan] 150 mg PO DAILY MDD 1 dose 12/21/17 Metronidazole [Metrogel] 60 gm VAG HS #1 packet 12/21/17 Nitrofurantoin Macrocrystals 100 mg PO BID 12/21/17 [Macrobid] - Allergies Allergies/Adverse Reactions: Allergies Allergy/AdvReac Type Severity Reaction Status Date / Time gabapentin Allergy SHORTNESS Verified 12/21/17 12:13 OF BREATH ibuprofen Allergy RASH Verified 12/21/17 12:13 Penicillins Allergy RASH Verified 12/21/17 12:13 strawberry Allergy VOMITING Verified 12/21/17 12:13 Review of Systems ROS Statement: Except As Marked, All Systems Reviewed And Found Negative Constitutional: Negative for: Fever, Chills Cardiovascular: Negative for: Chest Pain Respiratory: Negative for: Cough Gastrointestinal: Negative for: Nausea, Vomiting, Diarrhea Genitourinary Female: Positive for: Dysuria, Frequency, Vaginal Discharge, Pelvic Pain, Rash (skin irritation). Negative for: Incontinence, Hematuria, Vaginal Bleeding Physical Exam - Reviewed Nursing Documentation Reviewed: Yes Vital Signs Reviewed: Yes - Physical Exam Appears: Positive for: Well Skin: Negative for: Rash Eye Exam: Positive for: Normal appearance Cardiovascular/Chest: Positive for: Regular Rate, Rhythm Respiratory: Positive for: Normal Breath Sounds Gastrointestinal/Abdominal: Positive for: Soft. Negative for: Tenderness, Distended, Guarding, Rebound Pelvic Exam: Positive for: Other (Erythema noted to the vaginal canal and external genitalia, small amount of white discharge noted, no cervix ( hysterectomy), pain illicited with bimanual exam). Negative for: Active Bleeding, Blood Extremity: Positive for: Normal ROM Neurologic/Psych: Positive for: Alert, Oriented - ECG O2 Sat by Pulse Oximetry: 100 Pulse Ox Interpretation: Normal Medical Decision Making Medical Decision Makin57 year old with vaginal discomfort. Plan: Urine dip Urine culture Genital culture CHL/GC culture Patient is requesting treated for chl/gc - was given 1 gram PO zithromax and 250 mg IM rocephin. Rx given for metrogel and doxycycline. Patient has appt in 3 weeks with psychological operations. Patient made aware that she can return to ED any time if acutely worse. Disposition - Clinical Impression Clinical Impression: Vaginal discomfort - Patient ED Disposition Is Patient to be Admitted: No Counseled Patient/Family Regarding: Studies Performed, Diagnosis, Need For Followup, Rx Given - Disposition [facility] Disposition: Routine/Home Disposition Time: 14:41 Condition: STABLE Additional Instructions: Take prescription meds as directed. Keep your appointment with petroleum geologist or follow up with referred clinic. Prescriptions: Doxycycline Monohydrate 100 mg PO BID #14 tablet Metronidazole [Metrogel] 60 gm VAG HS #1 packet Instructions: Vaginal Discharge in Adults, Vaginitis Forms: [facility] (Burkinan)
[2017-12-21] MEDS ORDERED: cefTRIAXone (Rocephin) 250 mg Inj IM STA (13:32)
[2017-12-21 13:58] LABS: SQUAMOUS EPITHIAL < 1 /hpf (0-5); URINE BILIRUBIN NEGATIVE (NEGATIVE); URINE BLOOD NEGATIVE (NEGATIVE); URINE CLARITY CLEAR (Clear); URINE COLOR YELLOW (YELLOW); URINE GLUCOSE (UA) NEG (Normal); URINE LEUKOCYTE ESTERASE NEG Leu/uL (Negative); URINE PROTEIN NEGATIVE (NEGATIVE); URINE UROBILINOGEN 0.2-1.0 mg/dL (0.2-1.0)
[2017-12-21 14:52] VITALS: O2SAT 100
== END 2017-12-21 14:54 | disposition home or self-care (01) ==
LOC: H.ER 11:59
DX: N89.8 Other specified noninflammatory disorders of vagina (principal); E11.9 Type 2 diabetes mellitus without complications; Z86.59 Personal history of other mental and behavioral disorders; Z79.84 Long term (current) use of oral hypoglycemic drugs; Z88.0 Allergy status to penicillin; Z90.710 Acquired absence of both cervix and uterus
CPT/HCPCS: 81003; 82948; 87070; 87086; 87491; 87591; 96372; 99283; J0696

== ENCOUNTER 2018-03-09 08:15 | Emergency (ER) | payer MEDICARE, MEDICAID ==
[2018-03-09 08:42] VITALS: RESP 16
--- NOTE | 2018-03-09 09:14 | ED PDOC ---
HPI: SOB/CHF/COPD Time Seen by Provider: 03/09/18 08:27 Chief Complaint (Nursing): Shortness Of Breath Chief Complaint (Provider): shortness of breath History Per: Patient History/Exam Limitations: no limitations Onset/Duration Of Symptoms: Days (1) Current Symptoms Are (Timing): Still Present Quality: Tightness Associated Symptoms: Chills, Dizziness. denies: Fever, Chest Pain, Bloody Cough , Productive Cough Additional History Per: Patient Additional Complaint(s): 57yo female, with history of diabetes, hypertnesion, depression, comes to ER complaining of chest tightness and shortness of breath since yesterday morning. She reports using her ventolin inhaler with no relief of symptoms. Patient states she also feels generalized weakness, dizziness, and has fallen x 4 this past week. She reports normal food and drink intake. Otherwise, patient denies any vomiting, chest pain, fever, abdominal pain, feeling depressed, auditory/ visual hallucinations. PMD: Don Peterson Past Medical History Reviewed: Historical Data, Nursing Documentation, Vital Signs Vital Signs: Last Vital Signs Temp 98.0 F 03/09/18 08:40 Pulse 74 03/09/18 08:40 Resp 16 03/09/18 10:02 BP 137/61 03/09/18 08:40 Pulse Ox 99 03/09/18 09:17 - Medical History PMH: Anxiety, Arthritis, Bipolar Disorder, Depression, Diabetes (type 2), Gastritis, GERD, HTN (NOT ON MEDS), Hypercholesterolemia Denies: HIV, Chronic Kidney Disease - Surgical History Surgical History: (4 ) - Family History Family History: States: No Known Family Hx, Unknown Family Hx - Living Arrangements Living Arrangements: With Family - Social History Current smoker - smoking cessation education provided: No Ex-Smoker (has not smoked in the last 12 months): Yes - Immunization History Hx Tetanus Toxoid Vaccination: No Hx Influenza Vaccination: No Hx Pneumococcal Vaccination: No - Home Medications Home Medications: Ambulatory Orders Medication Instructions Recorded Benztropine [Cogentin] 5 mg PO DAILY 12/02/17 Gabapentin [Neurontin] 300 mg PO TID 12/02/17 Levocetirizine Dihydrochloride 10 mg PO BID PRN 12/02/17 [Xyzal] Metoprolol Tartrate [Lopressor] 50 mg PO DAILY 12/02/17 Pantoprazole [Protonix EC Tab] 40 mg PO DAILY 12/02/17 Risperidone [Risperdal] 3 mg PO DAILY 12/02/17 Sertraline [Zoloft] 100 mg PO DAILY 12/02/17 busPIRone [Buspar] 15 mg PO BID 12/02/17 hydroCHLOROthiazide [Microzide] 75 mg PO DAILY 12/02/17 metFORMIN [glucOPHAGE] 500 mg PO DAILY 12/02/17 traZODone [Desyrel] 100 mg PO HS 12/02/17 Lidocaine 5% [Lidoderm] 1 patch TOP DAILY #30 patch 12/03/17 Meclizine [Meclizine*] 25 mg PO Q8 #30 tab 12/03/17 Doxycycline Monohydrate 100 mg PO BID #14 tablet 12/21/17 Fluconazole [Diflucan] 150 mg PO DAILY MDD 1 dose 12/21/17 Metronidazole [Metrogel] 60 gm VAG HS #1 packet 12/21/17 Nitrofurantoin Macrocrystals 100 mg PO BID 12/21/17 [Macrobid] - Allergies Allergies/Adverse Reactions: Allergies Allergy/AdvReac Type Severity Reaction Status Date / Time gabapentin Allergy SHORTNESS Verified 12/21/17 12:13 OF BREATH ibuprofen Allergy RASH Verified 12/21/17 12:13 Penicillins Allergy RASH Verified 12/21/17 12:13 strawberry Allergy VOMITING Verified 12/21/17 12:13 Review of Systems ROS Statement: Except As Marked, All Systems Reviewed And Found Negative Constitutional: Positive for: Chills, Weakness. Negative for: Fever Cardiovascular: Negative for: Chest Pain Respiratory: Positive for: Shortness of Breath. Negative for: Cough Gastrointestinal: Negative for: Vomiting, Abdominal Pain Neurological: Positive for: Dizziness Physical Exam - Reviewed Nursing Documentation Reviewed: Yes Vital Signs Reviewed: Yes - Physical Exam Appears: Positive for: Non-toxic, No Acute Distress Head Exam: Positive for: ATRAUMATIC, NORMAL INSPECTION, NORMOCEPHALIC Skin: Positive for: Normal Color Eye Exam: Positive for: Normal appearance Neck: Positive for: Normal, Supple Cardiovascular/Chest: Positive for: Regular Rate, Rhythm, Chest Non Tender. Negative for: Tachycardia Respiratory: Positive for: Normal Breath Sounds. Negative for: Rales, Rhonchi, Wheezing Gastrointestinal/Abdominal: Positive for: Normal Exam, Soft. Negative for: Tenderness Back: Positive for: Normal Inspection Extremity: Positive for: Normal ROM, Calf Tenderness (left calf tenderness; no swelling, warmth or erythema noted). Negative for: Pedal Edema, Deformity, Swelling Neurologic/Psych: Positive for: Alert, Oriented. Negative for: Motor/Sensory Deficits - Laboratory Results Result Diagrams: 03/09/18 09:56 03/09/18 09:56 - ECG O2 Sat by Pulse Oximetry: 99 (RA) Pulse Ox Interpretation: Normal Medical Decision Making Medical Decision Making: Impression: Shortness of breath, generalized weakness Plan: -- Labs -- EKG -- Chest x-ray -- IV Fluids -- Rapid Flu Scribe Attestation: Documented by Elzbieta Swan, acting as a scribe for Natalie Narvaez MD. Provider Scribe Attestation: All medical record entries made by the Scribe were at my direction and personally dictated by me. I have reviewed the chart and agree that the record accurately reflects my personal performance of the history, physical exam, medical decision making, and the department course for this patient. I have also personally directed, reviewed, and agree with the discharge instructions and disposition. 1.00 p - labs normal. patient was able to rest. she has had a lunch tray. Will discharge. Disposition - Clinical Impression Clinical Impression: Chronic pain - Patient ED Disposition Is Patient to be Admitted: No Doctor Will See Patient In The: Office Counseled Patient/Family Regarding: Diagnosis, Need For Followup - Disposition Disposition: Routine/Home Disposition Time: 13:00 Condition: STABLE Instructions: Chronic Pain Forms: [facility] (Telugu) Print Language: SAMMARINESE - POA Present On Arrival: None
[2018-03-09] MEDS ORDERED: Sodium Chloride 0.9% 1,000 ML IV STA (09:16)
[2018-03-09] MEDS ORDERED: Naproxen 500 MG TAB PO ONE ×2 (09:17→09:37)
[2018-03-09 10:03] LABS: BASO % 0.5 % (0.0-2.0); EOS # 0.1 K/uL (0.0-0.7); EOS % 1.4 % (0.0-4.0); LYMPH # 1.4 K/uL (1.0-4.3); LYMPH % 19.5 % (20.0-40.0); MEAN CELL VOLUME 89.3 fl (81.0-99.0); MEAN CORPUSCULAR HEMOGLOBIN 30.9 pg (27.0-31.0); MEAN CORPUSCULAR HGB CONC 34.6 g/dL (33.0-37.0); MEAN PLATELET VOLUME 9.5 fl (7.2-11.7); MONO # 0.6 K/uL (0.0-0.8); MONO % 8.3 % (0.0-10.0); NEUT # 5.1 K/uL (1.8-7.0); NEUT % 70.3 % (50.0-75.0); NRBC % 0.1 % (0.0-0.0); RBC 3.89 Mil/uL (3.80-5.20); RED CELL DISTRIBUTION WIDTH 13.4 % (11.5-14.5); WHITE BLOOD COUNT 7.2 K/uL (4.8-10.8)
[2018-03-09 10:17] LABS: ALB/GLOB RATIO 1.3 (1.0-2.1); ALBUMIN 4.4 g/dL (3.5-5.0); ALT/SGPT 29 U/L (9-52); AST/SGOT 33 U/L (14-36); BLOOD UREA NITROGEN 27 mg/dl (7-17); CALCIUM 9.6 mg/dL (8.4-10.2); GFR AFRICAN-AMERICAN > 60; GFR NON-AFRICAN AMERICAN > 60
--- NOTE | 2018-03-09 10:46 | RAD ---
Date of service: 03/09/2018 HISTORY: generalized weakness COMPARISON: 10/02/2017 TECHNIQUE: Chest PA and lateral FINDINGS: LUNGS: No active pulmonary disease. PLEURA: No significant pleural effusion identified. No pneumothorax apparent. CARDIOVASCULAR: Normal. OSSEOUS STRUCTURES: Thoracic spondylosis VISUALIZED UPPER ABDOMEN: Normal. OTHER FINDINGS: None. IMPRESSION: No active disease. No interval pathology noted
[2018-03-09] MEDS ORDERED: Potassium Chloride 20 mEq ER Tab PO ONE ×2 (11:34→11:55)
--- NOTE | 2018-03-09 12:52 | CARD ---
APPROVED REPORT Date of service: 03/09/2018 EKG Measurement Heart [id number] <Conclusion> Normal sinus rhythm Normal ECG
[2018-03-09 14:05] VITALS: BP 132/78; PULSE 78; TEMP 98.5; O2SAT 98
== END 2018-03-09 14:05 | disposition home or self-care (01) ==
LOC: H.ER 08:15
DX: G89.29 Other chronic pain (principal); I10 Essential (primary) hypertension; E11.9 Type 2 diabetes mellitus without complications; E78.00 Pure hypercholesterolemia, unspecified; K21.9 Gastro-esophageal reflux disease without esophagitis
CPT/HCPCS: 71046; 80053; 84484; 85025; 87804; 93005; 99283; J7030

== ENCOUNTER 2018-09-14 14:37 | Emergency (ER) | payer MEDICARE, MEDICAID ==
--- NOTE | 2018-09-14 16:57 | ED PDOC ---
HPI: General Adult Time Seen by Provider: 09/14/18 16:14 Chief Complaint (Nursing): GI Problem Chief Complaint (Provider): GI Problem History Per: Patient History/Exam Limitations: no limitations Current Symptoms Are (Timing): Still Present Additional Complaint(s): 58 year old female with a history of migraines, hypertension, diabetes, and psych presents to the ED with 3 days of left sided headache. Patient reports pain is consistent with past migraines. She took Excedrin with no relief. Josias mancera also reports left sided abdominal pain and bilateral leg cramps. these are exact same complaint pt had on last ER visit. pt denies fever or vomiting pain and points to LUQ abdomen. PMD: Dr. Peterson Past Medical History Reviewed: Historical Data, Nursing Documentation, Vital Signs Vital Signs: Last Vital Signs Temp 97.9 F 09/14/18 15:41 Pulse 60 09/14/18 15:41 Resp 16 09/14/18 15:41 BP 111/60 09/14/18 15:41 Pulse Ox 100 09/14/18 15:41 - Medical History PMH: Anxiety, Arthritis, Bipolar Disorder, Depression, Diabetes (type 2), Gastr itis, GERD, HTN (NOT ON MEDS), Hypercholesterolemia Denies: HIV, Chronic Kidney Disease - Surgical History Surgical History: (4 ) - Family History Family History: States: Unknown Family Hx - Social History Current smoker - smoking cessation education provided: No Ex-Smoker (has not smoked in the last 12 months): No Alcohol: None Drugs: Denies - Immunization History Hx Tetanus Toxoid Vaccination: No Hx Influenza Vaccination: No Hx Pneumococcal Vaccination: No - Home Medications Home Medications: Ambulatory Orders Medication Instructions Recorded RX: Benztropine [Cogentin] 5 mg PO DAILY 12/02/17 RX: Gabapentin [Neurontin] 300 mg PO TID 12/02/17 RX: Levocetirizine Dihydrochloride 10 mg PO BID PRN 12/02/17 [Xyzal] RX: Metoprolol Tartrate [Lopressor] 50 mg PO DAILY 12/02/17 RX: Pantoprazole [Protonix EC Tab] 40 mg PO DAILY 12/02/17 RX: Risperidone [Risperdal] 3 mg PO DAILY 12/02/17 RX: Sertraline [Zoloft] 100 mg PO DAILY 12/02/17 RX: busPIRone [Buspar] 15 mg PO BID 12/02/17 RX: hydroCHLOROthiazide [Microzide] 75 mg PO DAILY 12/02/17 RX: metFORMIN [glucOPHAGE] 500 mg PO DAILY 12/02/17 RX: traZODone [Desyrel] 100 mg PO HS 12/02/17 Lidocaine 5% [Lidoderm] 1 patch TOP DAILY #30 patch 12/03/17 RX: Meclizine [Meclizine*] 25 mg PO Q8 #30 tab 12/03/17 Fluconazole [Diflucan] 150 mg PO DAILY MDD 1 dose 12/21/17 Metronidazole [Metrogel] 60 gm VAG HS #1 packet 12/21/17 Nitrofurantoin Macrocrystals 100 mg PO BID 12/21/17 [Macrobid] RX: Doxycycline Monohydrate 100 mg PO BID #14 tablet 12/21/17 Acetaminophen/Butalbital/Caf 1 - 2 tab PO Q6 PRN #12 tab 09/14/18 [Fioricet] - Allergies Allergies/Adverse Reactions: Allergies Allergy/AdvReac Type Severity Reaction Status Date / Time gabapentin Allergy SHORTNESS Verified 09/14/18 15:42 OF BREATH ibuprofen Allergy RASH Verified 09/14/18 15:42 Penicillins Allergy RASH Verified 09/14/18 15:42 strawberry Allergy VOMITING Verified 09/14/18 15:42 Review of Systems ROS Statement: Except As Marked, All Systems Reviewed And Found Negative Neurological: Positive for: Headache Physical Exam - Reviewed Nursing Documentation Reviewed: Yes Vital Signs Reviewed: Yes - Physical Exam Appears: Positive for: No Acute Distress Head Exam: Positive for: ATRAUMATIC, NORMOCEPHALIC Skin: Positive for: Normal Color, Warm, Dry Eye Exam: Positive for: EOMI, Normal appearance, PERRL ENT: Positive for: Normal ENT Inspection Neck: Positive for: Normal Cardiovascular/Chest: Positive for: Regular Rate, Rhythm. Negative for: Murmur Respiratory: Positive for: Normal Breath Sounds. Negative for: Respiratory Distress Gastrointestinal/Abdominal: Positive for: Normal Exam, Bowel Sounds, Soft. Negative for: Tenderness, Distended, Guarding, Rebound, Hernia, Asicites Back: Positive for: Normal Inspection Extremity: Positive for: Normal ROM (upper and lower). Negative for: Pedal Edema, Deformity Neurologic/Psych: Positive for: Alert, beam racker II-XII, Oriented (x3), Gait (stable). Negative for: Motor/Sensory Deficits, Aphasia, Facial Droop - Laboratory Results Result Diagrams: 09/14/18 17:27 09/14/18 17:27 - ECG O2 Sat by Pulse Oximetry: 100 (RA) Pulse Ox Interpretation: Normal Medical Decision Making Medical Decision Making: Time: 1614 migraine, typical migraine, other multiple complaints. neuro exam and abdominal exam normal Plan: --CMP --CBC --Pepcid 20 mg IVP --Reglan 10 mg IVP --Zofran 4 mg IV Time: 1809 --Slight anemia on labs and slightly elevated BUN. Ordered IV fluids Time: 1821 --On reevaluation, patient is still having pain. Ordered toradol, morphine and CT head Time: 1856 CT head FINDINGS: HEMORRHAGE: No intracranial hemorrhage. BRAIN: No mass effect or edema. The mendez-white matter differentiation appears intact. Please note that MRI with diffusion imaging is more sensitive in the detection of acute ischemic event. VENTRICLES: No hydrocephalus. CALVARIUM: Unremarkable. PARANASAL SINUSES: Unremarkable as visualized. No significant inflammatory changes. MASTOID AIR CELLS: Unremarkable as visualized. No inflammatory changes. OTHER FINDINGS: None. IMPRESSION: No acute intracranial pathology identified. Time: 1899 --Patient signed out to dr butt (pt needed more pain meds), pending reevaluation/ct head final results. Scribe Attestation: Documented by Nicki Peterson, acting as a scribe for James Martinez MD. Provider Scribe Attestation: All medical record entries made by the Scribe were at my direction and personally dictated by me. I have reviewed the chart and agree that the record accurately reflects my personal performance of the history, physical exam, medical decision making, and the department course for this patient. I have also personally directed, reviewed, and agree with the discharge instructions and disposition. Disposition - Clinical Impression Clinical Impression: Headache - Patient ED Disposition Is Patient to be Admitted: Transfer of Care - Disposition Disposition: Transfer of Care Disposition Time: 19:00 Condition: STABLE Prescriptions: Acetaminophen/Butalbital/Caf [Fioricet] 1 - 2 tab PO Q6 PRN #12 tab PRN Reason: Headache Instructions: Headache, Adult Forms: [facility] (Luxembourger) Patient Signed Over To: Evgeny Butt
[2018-09-14 17:31] LABS: BASO % 0.4 % (0.0-2.0); EOS # 0.1 K/uL (0.0-0.7); EOS % 2.1 % (0.0-4.0); LYMPH # 2.1 K/uL (1.0-4.3); LYMPH % 37.8 % (20.0-40.0); MEAN CELL VOLUME 90.2 fl (81.0-99.0); MEAN CORPUSCULAR HEMOGLOBIN 30.1 pg (27.0-31.0); MEAN CORPUSCULAR HGB CONC 33.4 g/dL (33.0-37.0); MEAN PLATELET VOLUME 9.2 fl (7.2-11.7); MONO # 0.4 K/uL (0.0-0.8); MONO % 8.1 % (0.0-10.0); NEUT # 2.9 K/uL (1.8-7.0); NEUT % 51.6 % (50.0-75.0); NRBC % 0.1 % (0.0-0.0); RBC 3.65 Mil/uL (3.80-5.20); RED CELL DISTRIBUTION WIDTH 13.9 % (11.5-14.5); WHITE BLOOD COUNT 5.5 K/uL (4.8-10.8)
[2018-09-14 17:44] LABS: ALB/GLOB RATIO 1.3 (1.0-2.1); BLOOD UREA NITROGEN 24 mg/dl (7-17); CALCIUM 9.2 mg/dL (8.4-10.2); GFR NON-AFRICAN AMERICAN > 60
[2018-09-14 18:02] LABS: ALT/SGPT 29 U/L (9-52); AST/SGOT 31 U/L (14-36)
[2018-09-14] MEDS ORDERED: Sodium Chloride 0.9% 1,000 ML IV STA (18:10)
[2018-09-14] MEDS ORDERED: Morphine 4 MG/ML VIAL IV ONE (18:22)
[2018-09-14] MEDS ORDERED: Morphine 4 MG/ML VIAL ONE (18:45)
--- NOTE | 2018-09-14 19:00 | CT ---
Date of service: 09/14/2018 PROCEDURE: CT HEAD WITHOUT CONTRAST. HISTORY: headache COMPARISON: Noncontrast head CT performed 12/02/17 TECHNIQUE: Axial computed tomography images were obtained through the head/brain without intravenous contrast. Radiation dose: Total exam DLP = 775.7 mGy-cm. This CT exam was performed using one or more of the following dose reduction techniques: Automated exposure control, adjustment of the mA and/or kV according to patient size, and/or use of iterative reconstruction technique. FINDINGS: HEMORRHAGE: No intracranial hemorrhage. BRAIN: No mass effect or edema. The mendez-white matter differentiation appears intact. Please note that MRI with diffusion imaging is more sensitive in the detection of acute ischemic event. VENTRICLES: No hydrocephalus. CALVARIUM: Unremarkable. PARANASAL SINUSES: Unremarkable as visualized. No significant inflammatory changes. MASTOID AIR CELLS: Unremarkable as visualized. No inflammatory changes. OTHER FINDINGS: None. IMPRESSION: No acute intracranial pathology identified.
--- NOTE | 2018-09-14 19:23 | ED PDOC ---
- Laboratory Results Result Diagrams: 09/14/18 17:09/14/18 17:27 Lab Results: Total Bilirubin 0.3 mg/dl (0.2-1.3) 09/14/18 17: AST 31 U/L (14-36) 09/14/18 17: ALT 29 U/L (9-52) 09/14/18 17: Alkaline Phosphatase 73 U/L (38-126) 09/14/18: Total Protein 7.1 G/DL (6.3-8.2) 09/14/18: Albumin 4.0 g/dL (3.5-5.0) 09/14/18: Globulin 3.0 gm/dL (2.2-3.9) 09/14/18: Albumin/Globulin Ratio 1.3 (1.0-2.1) 09/14/18: - ECG O2 Sat by Pulse Oximetry: 100 (RA) Pulse Ox Interpretation: Normal Medical Decision Making Medical Decision Making: Time: 1899 Patient signed out to this provider from Dr. Martinez pending reevaluation and CT head. CT head Time: 1856 CT head FINDINGS: HEMORRHAGE: No intracranial hemorrhage. BRAIN: No mass effect or edema. The mendez-white matter differentiation appears intact. Please note that MRI with diffusion imaging is more sensitive in the detection of acute ischemic event. VENTRICLES: No hydrocephalus. CALVARIUM: Unremarkable. PARANASAL SINUSES: Unremarkable as visualized. No significant inflammatory changes. MASTOID AIR CELLS: Unremarkable as visualized. No inflammatory changes. OTHER FINDINGS: None. IMPRESSION: No acute intracranial pathology identified. Time: 2040 Patient's symptoms have improved and is requesting something to eat. Patient is stable for discharge. Scribe Attestation: Documented by Praneeth Simmons, acting as a scribe for Evgeny Butt MD. Provider Scribe Attestation: All medical record entries made by the Scribe were at my direction and personally dictated by me. I have reviewed the chart and agree that the record accurately reflects my personal performance of the history, physical exam, medical decision making, and the department course for this patient. I have also personally directed, reviewed, and agree with the discharge instructions and disposition. Disposition - Clinical Impression Clinical Impression: Headache - POA Present On Arrival: None - Disposition Disposition: Routine/Home Disposition Time: 20:42 Condition: STABLE Prescriptions: Acetaminophen/Butalbital/Caf [Fioricet] 1 - 2 tab PO Q6 PRN #12 tab PRN Reason: Headache Instructions: Headache, Adult Forms: [facility] ([place] Citizen)
[2018-09-14 21:27] VITALS: BP 117/68; PULSE 74; RESP 17; TEMP 98.1
[2018-09-15 06:30] VITALS: O2SAT 100
== END 2018-09-14 21:14 | disposition home or self-care (01) ==
LOC: H.ER 14:37
DX: R51 Headache (principal); E11.9 Type 2 diabetes mellitus without complications; E78.00 Pure hypercholesterolemia, unspecified; I10 Essential (primary) hypertension; Z79.84 Long term (current) use of oral hypoglycemic drugs; Z88.0 Allergy status to penicillin
CPT/HCPCS: 70450; 80053; 85025; 96374; 96375; 99285; J2270; J2405; J2765; J7030

== ENCOUNTER 2018-10-18 05:43 | Emergency (ER) | payer MEDICARE, MEDICAID ==
[2018-10-18] MEDS ORDERED: Morphine 4 MG/ML VIAL IM STA (06:26)
--- NOTE | 2018-10-18 06:47 | ED PDOC ---
HPI: Back Time Seen by Provider: 10/18/18 06:15 Chief Complaint (Nursing): Back Pain Chief Complaint (Provider): Back Pain History Per: Patient History/Exam Limitations: no limitations Onset/Duration Of Symptoms: Days (3-4) Additional Complaint(s): 58 y/o with history of chronic lower back pain as well as diabetes and hypertension presents to the ED complaining of lower back pain for x3-4 days. Patient reports symptoms are typical for her lower back pain and pain is worse in her left side with radiation into her leg making it difficult to walk. Patient also reports some dysuria. She denies any issues with bowel movements and further denies chills, fever, or weight loss. Patient has had multiple workups including X-rays and MRIs that shows disc disease. Patient states that she has an appointment with her pain management doctor on Wednesday. Reports she has been taking oxycodone, Flexeril, and Naproxe at home without any relief whatsoever. Past Medical History Reviewed: Historical Data, Nursing Documentation, Vital Signs Vital Signs: Last Vital Signs Temp 98.5 F 10/18/18 06:10 Pulse 68 10/18/18 06:10 Resp 16 10/18/18 06:10 BP 129/69 10/18/18 06:10 Pulse Ox 100 10/18/18 06:10 - Medical History PMH: Anxiety, Arthritis, Bipolar Disorder, Depression, Diabetes (type 2), Gastritis, GERD, HTN (NOT ON MEDS), Hypercholesterolemia Denies: HIV, Chronic Kidney Disease - Surgical History Surgical History: (4 ) - Family History Family History: States: Unknown Family Hx - Immunization History Hx Tetanus Toxoid Vaccination: No Hx Influenza Vaccination: No Hx Pneumococcal Vaccination: No - Home Medications Home Medications: Ambulatory Orders Medication Instructions Recorded Benztropine [Cogentin] 5 mg PO DAILY 12/02/17 Gabapentin [Neurontin] 300 mg PO TID 12/02/17 Levocetirizine Dihydrochloride 10 mg PO BID PRN 12/02/17 [Xyzal] Metoprolol Tartrate [Lopressor] 50 mg PO DAILY 12/02/17 Pantoprazole [Protonix EC Tab] 40 mg PO DAILY 12/02/17 Risperidone [Risperdal] 3 mg PO DAILY 12/02/17 Sertraline [Zoloft] 100 mg PO DAILY 12/02/17 busPIRone [Buspar] 15 mg PO BID 12/02/17 hydroCHLOROthiazide [Microzide] 75 mg PO DAILY 12/02/17 metFORMIN [glucOPHAGE] 500 mg PO DAILY 12/02/17 traZODone [Desyrel] 100 mg PO HS 12/02/17 Lidocaine 5% [Lidoderm] 1 patch TOP DAILY #30 patch 12/03/17 Meclizine [Meclizine*] 25 mg PO Q8 #30 tab 12/03/17 Doxycycline Monohydrate 100 mg PO BID #14 tablet 12/21/17 Fluconazole [Diflucan] 150 mg PO DAILY MDD 1 dose 12/21/17 Metronidazole [Metrogel] 60 gm VAG HS #1 packet 12/21/17 Nitrofurantoin Macrocrystals 100 mg PO BID 12/21/17 [Macrobid] Acetaminophen/Butalbital/Caf 1 - 2 tab PO Q6 PRN #12 tab 09/14/18 [Fioricet] - Allergies Allergies/Adverse Reactions: Allergies Allergy/AdvReac Type Severity Reaction Status Date / Time gabapentin Allergy SHORTNESS Verified 09/14/18 15:42 OF BREATH ibuprofen Allergy RASH Verified 09/14/18 15:42 Penicillins Allergy RASH Verified 09/14/18 15:42 strawberry Allergy VOMITING Verified 09/14/18 15:42 Review of Systems ROS Statement: Except As Marked, All Systems Reviewed And Found Negative Constitutional: Negative for: Fever, Chills, Weight loss Gastrointestinal: Negative for: Diarrhea, Constipation, Melena, Hematochezia Musculoskeletal: Positive for: Back Pain, Leg Pain Physical Exam - Reviewed Nursing Documentation Reviewed: Yes Vital Signs Reviewed: Yes - Physical Exam Appears: Positive for: Uncomfortable Head Exam: Positive for: ATRAUMATIC, NORMAL INSPECTION, NORMOCEPHALIC Skin: Positive for: Normal Color, Warm, DRY Eye Exam: Positive for: EOMI, Normal appearance, PERRL ENT: Positive for: Normal ENT Inspection Neck: Positive for: Normal, Painless ROM Cardiovascular/Chest: Positive for: Regular Rate, Rhythm. Negative for: Murmur Respiratory: Positive for: Normal Breath Sounds. Negative for: Respiratory Distress Gastrointestinal/Abdominal: Positive for: Normal Exam, Soft. Negative for: Tenderness Back: Positive for: Normal Inspection, Vertebral Tenderness (Lumbar paravertebral musculature tenderness). Negative for: L CVA Tenderness, R CVA Tenderness Extremity: Positive for: Normal ROM, Other (sensation intact in all 4 extremities). Negative for: Pedal Edema, Deformity Neurological/Psych: Positive for: Awake, Alert, Normal Tone, Symmetric/Intact Strength, Other (no saddle anesthesia). Negative for: Motor/Sensory Deficits - ECG O2 Sat by Pulse Oximetry: 100 (RA) Pulse Ox Interpretation: Normal Medical Decision Making Medical Decision Making: Time: 06:27 A/P: 58 y/o with musculoskeletal pain and chronic back pain. Not concerned for acute spinal cord impingement syndrome, AAA, or other serious life threatening pathology. Advised patient that she will be given 1 dose of IM morphine here and will not receive a prescription for narcotics. Patient will have to follow up with her pain management doctor. Will get x-ray and urine studies. * RAD- Lumbar Spine * Morphine * UA 07:00 Patient care endorsed to Dr. Martinez pending X-rays and urine studies. Scribe Attestation: Documented by Fermin Montgomery, acting as a scribe Mono Haq MD. Provider Scribe Attestation: All medical record entries made by the Scribe were at my direction and personally dictated by me. I have reviewed the chart and agree that the record accurately reflects my personal performance of the history, physical exam, medical decision making, and the department course for this patient. I have also personally directed, reviewed, and agree with the discharge instructions and disposition. Disposition - Clinical Impression Clinical Impression: Acute back pain - Patient ED Disposition Is Patient to be Admitted: Transfer of Care - Disposition Disposition: Transfer of Care Disposition Time: 07:00 Condition: IMPROVED Additional Instructions: follow up with PCP and pain management doctor on Wednesday return to the ED with any worsening or concerning symptoms Instructions: Low Back Pain (DC) Forms: [facility] (Fijian) Patient Signed Over To: James Martinez Handoff Comments: pending re-eval, xray, and urine study
[2018-10-18] MEDS ORDERED: Morphine 4 MG/ML VIAL ONE (06:49)
[2018-10-18 07:14] LABS: SQUAMOUS EPITHIAL 1 /hpf (0-5); URINE BILIRUBIN NEGATIVE (NEGATIVE); URINE BLOOD NEGATIVE (NEGATIVE); URINE CLARITY SLIGHTY-CLOUDY (Clear); URINE COLOR YELLOW (YELLOW); URINE GLUCOSE (UA) NEG (NEGATIVE); URINE LEUKOCYTE ESTERASE NEG Leu/uL (Negative); URINE PROTEIN NEGATIVE (NEGATIVE); URINE UROBILINOGEN 0.2-1.0 mg/dL (0.2-1.0)
--- NOTE | 2018-10-18 07:34 | ED PDOC ---
- Laboratory Results Lab Results: Urine Color Yellow (YELLOW) 10/18/18 06:41 Urine Clarity Slighty-cloudy (Clear) 10/18/18 06:41 Urine pH 5.0 (5.0-8.0) 10/18/18 06:41 Ur Specific [place] 1.027 (1.003-1.030) 10/18/18 06:41 Urine Protein Negative mg/dL (NEGATIVE) 10/18/18 06:41 Urine Glucose (UA) Neg mg/dL (NEGATIVE) 10/18/18 06:41 Urine Ketones Negative mg/dL (NEGATIVE) 10/18/18 06:41 Urine Blood Negative (NEGATIVE) 10/18/18 06:41 Urine Nitrate Negative (NEGATIVE) 10/18/18 06:41 Urine Bilirubin Negative (NEGATIVE) 10/18/18 06:41 Urine Urobilinogen 0.2-1.0 mg/dL (0.2-1.0) 10/18/18 06:41 Ur Leukocyte Esterase Neg Keyla/uL (Negative) 10/18/18 06:41 Urine RBC (Auto) 1 /hpf (0-3) 10/18/18 06:41 Urine Microscopic WBC 1 /hpf (0-5) 10/18/18 06:41 Ur Squamous Epith Cells 1 /hpf (0-5) 10/18/18 06:41 - ECG O2 Sat by Pulse Oximetry: 100 (RA) Pulse Ox Interpretation: Normal Medical Decision Making Medical Decision Makin Patient care endorsed to me by Dr. Haq pending X-ray readings and reevaluation. 0727 Lumbar spine, complete. Indication: Low back pain. Comparison: CT scan on 04/19/2017. Findings: Mild S-shaped scoliosis. There are diffuse spondylotic changes. Findings are demonstrated by disc space narrowing, osteophyte formation and degenerative endplate changes. Facet joint arthropathy is noted. No fracture or dislocation is seen. No aggressive bone lesion is noted. Impression: Spondylosis. Multilevel facet joint arthropathy. No acute bone pathology. Upon reevaluation, patient was sleeping comfortably on her bed. [id number] Patient will be discharged home and needs to follow up with pain management and PCP on Wednesday. Scribe Attestation: Documented by Akash East, acting as a scribe forJames Martinez MD. Provider Scribe Attestation: All medical record entries made by the Scribe were at my direction and personally dictated by me. I have reviewed the chart and agree that the record accurately reflects my personal performance of the history, physical exam, [facility] decision making, and the department course for this patient. I have also personally directed, reviewed, and agree with the discharge instructions and disposition. Disposition - Clinical Impression Clinical Impression: Acute back pain - POA Present On Arrival: None - Disposition Disposition: Routine/Home Disposition Time: 09:57 Condition: IMPROVED Additional Instructions: follow up with PCP and pain management doctor on Wednesday return to the ED with any worsening or concerning symptoms Instructions: Low Back Pain (DC) Forms: [employer] (Samoan)
[2018-10-18 10:01] VITALS: BP 132/74; PULSE 85; RESP 18; TEMP 98.3
--- NOTE | 2018-10-18 14:26 | RAD ---
Date of service: 10/18/2018 PROCEDURE: Radiographs of the Lumbar Spine. HISTORY: lower back pain COMPARISON: No prior. FINDINGS: BONES: Alignment appears satisfactory. No listhesis. No acute displaced fracture identified. Degenerative changes including anterior osteophyte formation. Facet hypertrophy. DISC SPACES: Mild intervertebral disc space narrowing most prominent at L4-L5 and L5-S1 as well as T11-T12 and T12-L1 OTHER FINDINGS: None. IMPRESSION: Degenerative changes as above.
[2018-10-18 20:55] VITALS: O2SAT 100
== END 2018-10-18 10:00 | disposition home or self-care (01) ==
LOC: H.ER 05:43
DX: M54.5 Low back pain (principal); E11.9 Type 2 diabetes mellitus without complications; Z86.59 Personal history of other mental and behavioral disorders; G89.29 Other chronic pain; I10 Essential (primary) hypertension; Z79.84 Long term (current) use of oral hypoglycemic drugs; Z88.0 Allergy status to penicillin
CPT/HCPCS: 72114; 81003; 96372; 99283; J2270